=== PATIENT | female | born 1960 | race Caucasian/White ===

== ENCOUNTER → 2017-02-06 16:39 | Outpatient (CLI) | payer MEDICAID | END | disposition home or self-care (01) | LOC: D.MAMMO 10:00 | DX: Z12.31 Encounter for screening mammogram for malignant neoplasm of breast (principal) ==

== ENCOUNTER 2020-05-27 18:00 | Emergency (ER) | payer BC ==
[~2020-05-27] VITALS: Ht 162.6 cm; Wt 68.2 kg
[2020-05-27 18:03] VITALS: Ht 162.6 cm; Wt 68.2 kg
[2020-05-27] MEDS ORDERED: PROVENTIL/2.5 MG/3 M (18:04)
[2020-05-27 19:08] LABS: BASOPHILS 0.2 % (0-2); HEMATOCRIT 44.1 % (36.0-48.0); HEMOGLOBIN 14.4 g/dL (12-16); IMMATURE GRANULOCYTES 2.6 % (0-5); LYMPHOCYTES 28.4 % (15-50); MCHC 32.7 g/dL (31.0-37.0); MEAN PLATELET VOLUME 9.2 fL (7.4-10.4); MONOCYTES 4.5 % (2-11); NEUTROPHILS 55.3 % (40-80); PLATELET COUNT 156 10x3/uL (130-400); RDW 13.9 % (11.5-14.5); WBC 6.7 10x3/uL (4.8-10.8)
[2020-05-27 19:16] LABS: CALCIUM 8.7 mg/dL (8.5-10.1); CARBON DIOXIDE 32.2 mmol/L (21.0-32.0); CREATININE - SERUM 1.1 mg/dL (0.6-1.3); POTASSIUM - SERUM 3.2 mmol/L (3.5-5.1)
[2020-05-27 19:22] LABS: ALBUMIN 3.6 g/dL (3.4-5.0); BILIRUBIN - TOTAL 0.4 mg/dL (0.2-1.3); PROTEIN - SERUM 6.9 g/dL (6.4-8.2)
[2020-05-27] MEDS ORDERED: LEVAQUIN750 MG PO (20:59)
[2020-05-27 21:18] VITALS: BP 145/87
== END 2020-05-27 21:18 | disposition home or self-care (01) ==
LOC: D.ER 18:00
PROVIDERS: Family Medicine
DX: J18.1 Lobar pneumonia, unspecified organism (principal); R68.89 Other general symptoms and signs; Z72.0 Tobacco use

== ENCOUNTER 2020-06-20 16:08 | Inpatient (IN) | payer MEDICAID ==
[~2020-06-20] VITALS: Ht 162.6 cm; Wt 71.1 kg
--- NOTE | ~2020-06-20 | EC ---
PATIENT:JEZ LEMA DATE OF SERVICE: 06/20/20 SEX: F MEDICAL RECORD: [id number] DATE OF : 64 LOCATION:[facility] AGE OF PATIENT: 60 ADMISSION DATE: 06/20/20 REFERRING PHYSICIAN: INTERPRETING PHYSICIAN: PANCHO LIM MD ECHOCARDIOGRAM REPORT ECHO CHARGES 4 ECHO COMPLETE Date: 06/22/20 CLINICAL DIAGNOSIS: COPD, POSSIBLE LUNG MASS, BASELINE EF ECHOCARDIOGRAPHIC MEASUREMENTS (adult normal given) AC root (d.<3.7cm) 3.1 cm LV Septum d (<1.2 cm> 1.0 cm Valve Excursion 1.5 cm LV Septum (systole) 1.4 cm Left Atria (s.<4.0cm> 2.9 cm LVPW d(<1.2cm) 0.9 cm RV (d.<2.3cm) 2.2 cm LVPW (sytole) 1.4 cm LV diastole(<5.6CM) 4.5 cm MV E-F(>70mm/sec) cm LV systole 3.5 cm LVOT Diameter 1.9 cm MV exc.(>10mm) cm Est.ejection fraction (50-75%) % DOPPLER: LVIT cm/sec A 82 cm/sec E 58 cm/sec LA cm/sec RVSP 16.4 mmHg LVOT 75 cm/sec AOP1/2T m/s Asc. Ao 119 cm/sec RVOT 73 cm/sec RA cm/sec PA 79 cm/sec AV Gradient Peak 5.7 mmHg AV Mean 3.5 mmHg AV Area 1.9 cm MV Gradient Peak 4.8 mmHg MV Mean 2.9 mmHg MV Area cm COMMENTS: Waiter/Waitress Take Out: Caleb DURAND Commission Associate: Rowan Lim TAPE# PACS Pericardial Effusion N DATE OF SERVICE: PROCEDURE: Transthoracic echocardiogram. FINDINGS: 1. Left ventricle is not well visualized. Overall, appears to have normal to hyperdynamic function, ejection fraction 55% to 60%. There is no obvious wall motion abnormalities. 2. The right ventricle appears to be normal size, shape, structure, and function. ECHOCARDIOGRAM REPORT [id number] JEZ LEMA 3. The left atrium is normal. 4. The aortic valve appears to be normal. 5. Mitral valve is normal. 6. Tricuspid valve is normal. 7. The right atrium is normal. No significant effusion in the pericardium. TRANSINT:[id number] Voice Confirmation ID: [id number] DOCUMENT ID: [id number] PANCHO LIM MD CC: [id number] DICTATION DATE: 06/23/20 1042 BELT TENDER: 06/23/20 1224 ADM IN [facility] [address] [place] [address]
[~2020-06-20 16:08] MED LIST: LEVAQUIN750 MG PO; PROVENTIL/2.5 MG/3 M INH
[2020-06-20 16:20] VITALS: BP 121/72; BMI 25.8
--- NOTE | 2020-06-20 16:52 | NUR ---
CT ORDERED WITH CONTRAST. PATIENT ALLERGIC TO CONTRAST. WILL START CONTRAST ALLERGY PROTOCOL.
[2020-06-20 16:58] VITALS: BP 121/72
[2020-06-20 17:06] LABS: BASOPHILS 0.2 % (0-2); EOSINOPHILS 2.8 % (0-7); HEMATOCRIT 45.8 % (36.0-48.0); HEMOGLOBIN 14.8 g/dL (12-16); IMMATURE GRANULOCYTES 0.2 % (0-5); LYMPHOCYTES 30.9 % (15-50); MCH 31.7 pg (26.0-34.0); MCHC 32.3 g/dL (31.0-37.0); MCV 98.1 fL (80.0-100.0); MEAN PLATELET VOLUME 9.4 fL (7.4-10.4); MONOCYTES 4.8 % (2-11); NEUTROPHILS 61.1 % (40-80); PLATELET COUNT 141 10x3/uL (130-400); RBC 4.67 10x6/uL (4.00-5.40); RDW 13.4 % (11.5-14.5); WBC 5.4 10x3/uL (4.8-10.8)
[2020-06-20 17:29] LABS: CALC OSMOLALITY 280 mosm/kg (275-300); CARBON DIOXIDE 32.2 mmol/L (21.0-32.0); CHLORIDE - SERUM 106 mmol/L (98-107); CREATININE - SERUM 0.8 mg/dL (0.6-1.3); POTASSIUM - SERUM 3.5 mmol/L (3.5-5.1); SODIUM 141 mmol/L (136-145); UREA NITROGEN 8 mg/dL (7-18); eGFR NON AFRICAN AMERICAN 78 mL/min (90-120)
[2020-06-20 17:31] LABS: GLUCOSE 140 mg/dL (74-106)
[2020-06-20 17:43] LABS: ALBUMIN 3.3 g/dL (3.4-5.0); ALKALINE PHOSPHATASE 79 U/L (30-120); ALT (SGPT) 28 U/L (10-68); PROTEIN - SERUM 6.5 g/dL (6.4-8.2)
--- NOTE | 2020-06-20 19:15 | NUR ---
REPORT GIVEN BY ANNA RAMIREZ
--- NOTE | 2020-06-20 21:00 | NUR ---
PT ASSESSMENT COMPLETED. PT IS UP AD EMMA IN HER ROOM. SHE IS HERE FOR COPD WITH LOW SATS IN DR. JENNINGS'S OFFICE. SHE IS ON 2L O2 PRESENTLY. SHE IS NOT ON HOME O2. SHE HAS A 20 G RIGHT FOREARM SL. SHE IS AWAKE AND ORIENTED X 4. SHE TELLS ME ABOUT A CT SHE HAD 40 YEARS AGO AND THE REACTION SHE HAD TO THE DYE. I TRIED TO REASSURE HER WITH HOPEFULLY THINGS HAVE GOTTEN BETTER IN 40 YEARS. SHE LAUGHED AND SAID SHE WAS STILL VERY ANXIOUS AND THAT SHE WOULD LIKE ANXIETY MEDS. SKIN IS WARM AND DRY. HEART TONES WNL AND BOWEL SOUNDS HEARD. PT IS GOING TO HAVE A CT TOMORROW OF HER CHEST AND IS ON A PROTOCOL FOR PT ALLERGIC TO CONTRAST DYE. PT IS ON A REGULAR DIET. NO NEW C/O OR NEEDS AT THIS TIME.
--- NOTE | 2020-06-20 21:15 | NUR ---
PT IS COUGHING AND SHE STATES SHE CAN GET NOTHING UP. I BROUGHT HER AND INCENTIVE SPIROMETER AND INSTRUCTED HER HOW TO USE IT. SHE GETS THE METER TO ALMOST 1000. I INSTRUCTED HER TO USE THIS 10 TIMES AND HOUR WHEN SHE IS AWAKE. SHE STATES THAT SHE WILL DO THIS.
--- NOTE | 2020-06-20 22:18 | NUR ---
SPOKE WITH CHIQUIS EDEN, TO ASK FOR ANXIETY MED FOR THIS PT. SHE STATES SHE WILL ORDER SOMETHING FOR HER.
[2020-06-20 23:02] LABS: APTT 26.2 SECONDS (22.8-39.4); INR 0.95 (0.85-1.17); PROTIME 12.6 SECONDS (11.6-15.0)
[2020-06-20 23:03] LABS: D-DIMER-QUANTITATIVE 0.81 ug/mLFEU (0.20-0.54)
--- NOTE | 2020-06-20 23:30 | NUR ---
LEFT A CUP FOR PT TO COLLECT URINE FOR A UA.
--- NOTE | 2020-06-20 23:45 | NUR ---
URINE SAMPLE COLLECTED AND PUT IN TUBES: TAKEN TO THE LAB.
[2020-06-21] VITALS: BP 123/73
[2020-06-21 01:01] LABS: BILIRUBIN NEGATIVE (NEGATIVE); GLUCOSE 1000 mg/dL (NEGATIVE); KETONE NEGATIVE (NEGATIVE); NITRITE NEGATIVE (NEGATIVE); UROBILINOGEN NORMAL (NORMAL)
--- NOTE | 2020-06-21 02:36 | NUR ---
PT RESTING IN BED QUIETLY. O2 IN PLACE BUT PT IS A MOUTH BREATHER.
[2020-06-21 04:00] VITALS: BP 127/63
[2020-06-21 05:33] LABS: HEMATOCRIT 44.3 % (36.0-48.0); HEMOGLOBIN 14.5 g/dL (12-16); MCH 32.1 pg (26.0-34.0); MCHC 32.7 g/dL (31.0-37.0); MEAN PLATELET VOLUME 9.6 fL (7.4-10.4); PLATELET COUNT 143 10x3/uL (130-400); RBC 4.52 10x6/uL (4.00-5.40); RDW 13.1 % (11.5-14.5)
[2020-06-21 05:40] LABS: WBC 2.9 10x3/uL (4.8-10.8)
[2020-06-21 06:03] LABS: ALBUMIN 3.2 g/dL (3.4-5.0); ALKALINE PHOSPHATASE 77 U/L (30-120); ALT (SGPT) 25 U/L (10-68); CALCIUM 8.8 mg/dL (8.5-10.1); CHLORIDE - SERUM 104 mmol/L (98-107); CREATININE - SERUM 0.8 mg/dL (0.6-1.3); MAGNESIUM - SERUM 1.9 mg/dL (1.8-2.4); PROTEIN - SERUM 6.3 g/dL (6.4-8.2); SODIUM 140 mmol/L (136-145); UREA NITROGEN 7 mg/dL (7-18); eGFR NON AFRICAN AMERICAN 78 mL/min (90-120)
[2020-06-21 06:10] LABS: CALC OSMOLALITY 290 mosm/kg (275-300); GLUCOSE 347 mg/dL (74-106); POTASSIUM - SERUM 4.3 mmol/L (3.5-5.1)
--- NOTE | 2020-06-21 07:08 | NUR ---
PT HAD A GOOD NIGHT. SHE SLEPT ALMOST ALL THE SHIFT. SHE WAS AWAKE TO TAKE HER MEDS. NO C/O OR NEEDS.
--- NOTE | 2020-06-21 07:15 | NUR ---
REC'D IN SITTING ON SIDE OF BED AWAKE AND ALERT. RESP EVEN AND UNLABORED WITH NO DISTRESS NOTED. CAN EXPRESS NEEDS AND WANTS. NO C/O NOTED OR VOICED AT THIS TIME. ASSESSMENT COMPLETED. C/L IN REACH AT BEDSIDE.
[2020-06-21 08:00] VITALS: BP 119/77
[2020-06-21 09:00] LABS: EOSINOPHILS 1 % (0-7); LYMPHOCYTES 33 % (15-50); MONOCYTES 4 % (2-11); NEUTROPHILS 62 % (40-80); PLATELET ESTIMATE NORMAL
[2020-06-21 11:51] VITALS: BP 110/66
--- NOTE | 2020-06-21 14:49 | NUR ---
MEDICATED WITH KLONOPIN PER PT REQUEST.
[2020-06-21 16:11] VITALS: BP 104/67
--- NOTE | 2020-06-21 19:55 | NUR ---
I have reviewed this patient and I concur with the Shift Assessment completed by the Licensed Practical Nurse today this shift.
[2020-06-21 20:00] VITALS: BP 105/64
[2020-06-22] VITALS: BP 108/71
--- NOTE | 2020-06-22 00:03 | NUR ---
ALERT AND ORENTED X4 ABLE TO VOICE NEEDS AND WANTS TO STAFF. ON AT 2LETERS PRN. IV TO RIGHT FOREARM . ABLE TO VOICE NEEDS AND WANTS TO STAFF. WATER AND CALL LIGHT IN REACH. FAMILY AT BEDSIDE. NO NEEDS AT THIS TIME.
[2020-06-22 04:00] VITALS: BP 110/81
[2020-06-22 07:12] LABS: BASOPHILS 0 % (0-2); EOSINOPHILS 0.1 % (0-7); HEMATOCRIT 43.8 % (36.0-48.0); HEMOGLOBIN 14.2 g/dL (12-16); IMMATURE GRANULOCYTES 0.3 % (0-5); LYMPHOCYTES 9.1 % (15-50); MCH 32.1 pg (26.0-34.0); MCHC 32.4 g/dL (31.0-37.0); MCV 99.1 fL (80.0-100.0); MEAN PLATELET VOLUME 9.4 fL (7.4-10.4); MONOCYTES 1.9 % (2-11); NEUTROPHILS 88.6 % (40-80); PLATELET COUNT 141 10x3/uL (130-400); RBC 4.42 10x6/uL (4.00-5.40); RDW 13.3 % (11.5-14.5)
[2020-06-22 07:28] LABS: WBC 7.4 10x3/uL (4.8-10.8)
[2020-06-22 07:29] LABS: APTT 23.2 SECONDS (22.8-39.4); INR 0.89 (0.85-1.17); PROTIME 12.1 SECONDS (11.6-15.0)
[2020-06-22 07:36] LABS: ALBUMIN 3.2 g/dL (3.4-5.0); BILIRUBIN - TOTAL 0.22 mg/dL (0.2-1.3); CALCIUM 8.7 mg/dL (8.5-10.1); CARBON DIOXIDE 28.3 mmol/L (21.0-32.0); CREATININE - SERUM 0.9 mg/dL (0.6-1.3); MAGNESIUM - SERUM 1.9 mg/dL (1.8-2.4); POTASSIUM - SERUM 4.3 mmol/L (3.5-5.1); PROTEIN - SERUM 6.3 g/dL (6.4-8.2)
[2020-06-22 08:00] VITALS: BP 96/52
[2020-06-22 12:11] VITALS: BP 120/59
[2020-06-22 13:31] VITALS: BMI 25.7
[2020-06-22 16:08] VITALS: BP 109/63
[2020-06-22 20:00] VITALS: BP 116/74
--- NOTE | 2020-06-22 23:27 | NUR ---
ALERT AND ORENTED X4 HUSBEN AT BEDSIDE. WATER AND CALL LIGHT IN REACG. EDUCATED THAT WILL BE NPO AT MN. 20 ANNE IV IN RIGHT FOREARM, INTACT. UP AT EMMA. O2 AT 4LETERS PER MIN. VIA N/C..
[2020-06-23] VITALS (12 sets, daily range): BP systolic 97–126; BP diastolic 59–80
[2020-06-23 05:03] LABS: BASOPHILS 0 % (0-2); EOSINOPHILS 0 % (0-7); HEMATOCRIT 44.7 % (36.0-48.0); HEMOGLOBIN 14.2 g/dL (12-16); IMMATURE GRANULOCYTES 0.2 % (0-5); LYMPHOCYTES 9.3 % (15-50); MCH 31.5 pg (26.0-34.0); MCHC 31.8 g/dL (31.0-37.0); MCV 99.1 fL (80.0-100.0); MEAN PLATELET VOLUME 9.8 fL (7.4-10.4); NEUTROPHILS 88.5 % (40-80); PLATELET COUNT 145 10x3/uL (130-400); RBC 4.51 10x6/uL (4.00-5.40); RDW 13.3 % (11.5-14.5); WBC 8.4 10x3/uL (4.8-10.8)
[2020-06-23 05:34] LABS: ALBUMIN 3.3 g/dL (3.4-5.0); ANION GAP 9.2 mmol/L (8-16); BILIRUBIN - TOTAL 0.29 mg/dL (0.2-1.3); CALCIUM 8.9 mg/dL (8.5-10.1); CARBON DIOXIDE 31.1 mmol/L (21.0-32.0); CREATININE - SERUM 0.9 mg/dL (0.6-1.3); MAGNESIUM - SERUM 1.9 mg/dL (1.8-2.4); POTASSIUM - SERUM 4.3 mmol/L (3.5-5.1); PROTEIN - SERUM 6.6 g/dL (6.4-8.2)
--- NOTE | 2020-06-23 08:45 | NUR ---
SHE IS ALERT, TALKING. WEARING 4 LITERS OF OXYGEN. SHE IS HAVING A BRONCH TODAY. HER DAUGHTER IS AT THE BEDSIDE.
--- NOTE | 2020-06-23 11:26 | NUR ---
PRE OP MEDS GIVEN, GOING FOR HER BROCH. HER DAUGHTER IS AT THE BEDSIDE.
--- NOTE | 2020-06-23 19:53 | NUR ---
AWAKE,ALERT, NO COMPLAINTS VOICED AT PRESENT TIME. SL TO RFA WITHOUT REDNESS OR EDEMA NOTED. NO DISTRESS NOTED. O2 @4L PER NC ON. CL IN REACH
--- NOTE | 2020-06-24 03:54 | NUR ---
I have reviewed this patient and I concur with the Shift Assessment completed by the Licensed Practical Nurse today this shift.
[2020-06-24 06:16] LABS: BASOPHILS 0 % (0-2); EOSINOPHILS 0 % (0-7); HEMATOCRIT 43.8 % (36.0-48.0); IMMATURE GRANULOCYTES 0.1 % (0-5); MCH 31.7 pg (26.0-34.0); MCV 99.3 fL (80.0-100.0); MEAN PLATELET VOLUME 9.3 fL (7.4-10.4); MONOCYTES 4.3 % (2-11); NEUTROPHILS 80.6 % (40-80); PLATELET COUNT 137 10x3/uL (130-400); RBC 4.41 10x6/uL (4.00-5.40); RDW 13.1 % (11.5-14.5); WBC 6.8 10x3/uL (4.8-10.8)
[2020-06-24 06:46] LABS: ALBUMIN 3.2 g/dL (3.4-5.0); ALKALINE PHOSPHATASE 76 U/L (30-120); ALT (SGPT) 22 U/L (10-68); BILIRUBIN - TOTAL 0.36 mg/dL (0.2-1.3); CALC OSMOLALITY 281 mosm/kg (275-300); CALCIUM 8.8 mg/dL (8.5-10.1); CARBON DIOXIDE 32.1 mmol/L (21.0-32.0); CHLORIDE - SERUM 102 mmol/L (98-107); CREATININE - SERUM 0.8 mg/dL (0.6-1.3); GLUCOSE 262 mg/dL (74-106); MAGNESIUM - SERUM 2.1 mg/dL (1.8-2.4); POTASSIUM - SERUM 4.5 mmol/L (3.5-5.1); PROTEIN - SERUM 6.4 g/dL (6.4-8.2); SODIUM 136 mmol/L (136-145); UREA NITROGEN 14 mg/dL (7-18); eGFR NON AFRICAN AMERICAN 78 mL/min (90-120)
--- NOTE | 2020-06-24 08:47 | NUR ---
MEDICATED FOR HEADACHE, CONT TO MONITOR PAIN, IV INFUSING, NO DISTRESS NOTED
[2020-06-24 10:44] VITALS: BP 107/65
[2020-06-24 14:09] LABS: ACID FAST SMEAR Negative (()); AFB SPECIMEN PROCESSING Concentration (())
[2020-06-24 14:48] LABS: CKMB 0.2 U/L (0.0-3.6); CREATINE KINASE 31 UL (21-215)
[2020-06-24 14:50] LABS: TROPONIN-I < 0.017 ng/mL (0.000-0.060)
[2020-06-24 17:43] VITALS: BP 100/67
[2020-06-24 19:08] LABS: CKMB 0.3 U/L (0.0-3.6); CREATINE KINASE 28 UL (21-215)
[2020-06-24 19:20] LABS: TROPONIN-I < 0.017 ng/mL (0.000-0.060)
[2020-06-24 20:00] VITALS: BP 123/72
--- NOTE | 2020-06-24 22:49 | NUR ---
EYES CLOSED RESP EVEN AND UNALBORED. NO DISTRESS NOTED. O2 @ 3L PER NC ON. CL IN REACH
[2020-06-25 01:13] LABS: CKMB 0.4 U/L (0.0-3.6); CREATINE KINASE 28 UL (21-215); TROPONIN-I < 0.017 ng/mL (0.000-0.060)
[2020-06-25 03:08] LABS: BASOPHILS 0 % (0-2); EOSINOPHILS 0 % (0-7); HEMOGLOBIN 14.1 g/dL (12-16); IMMATURE GRANULOCYTES 0.1 % (0-5); LYMPHOCYTES 19.9 % (15-50); MCH 32.4 pg (26.0-34.0); MCHC 32.8 g/dL (31.0-37.0); MCV 98.9 fL (80.0-100.0); MEAN PLATELET VOLUME 9.7 fL (7.4-10.4); MONOCYTES 5.6 % (2-11); NEUTROPHILS 74.4 % (40-80); PLATELET COUNT 144 10x3/uL (130-400); RBC 4.35 10x6/uL (4.00-5.40); RDW 12.8 % (11.5-14.5); WBC 7.2 10x3/uL (4.8-10.8)
[2020-06-25 03:23] LABS: ALBUMIN 3.2 g/dL (3.4-5.0); ALKALINE PHOSPHATASE 100 U/L (30-120); ALT (SGPT) 22 U/L (10-68); BILIRUBIN - TOTAL 0.31 mg/dL (0.2-1.3); CALC OSMOLALITY 293 mosm/kg (275-300); CALCIUM 8.9 mg/dL (8.5-10.1); CARBON DIOXIDE 30.8 mmol/L (21.0-32.0); CHLORIDE - SERUM 102 mmol/L (98-107); CREATININE - SERUM 0.8 mg/dL (0.6-1.3); MAGNESIUM - SERUM 1.9 mg/dL (1.8-2.4); POTASSIUM - SERUM 4.2 mmol/L (3.5-5.1); PROTEIN - SERUM 6.4 g/dL (6.4-8.2); SODIUM 138 mmol/L (136-145); UREA NITROGEN 16 mg/dL (7-18); eGFR NON AFRICAN AMERICAN 78 mL/min (90-120)
[2020-06-25 03:27] LABS: GLUCOSE 412 mg/dL (74-106)
[2020-06-25 04:00] VITALS: BP 123/78
--- NOTE | 2020-06-25 07:48 | NUR ---
I have reviewed this patient and I concur with the Shift Assessment completed by the Licensed Practical Nurse today this shift.
--- NOTE | 2020-06-25 07:55 | NUR ---
RESTING IN BED, NO DISTRESS NOTED, TAKING PAIN MED THIS AM FOR C/O HEAD, O2 PER NC AT 3L, CONT TO MONITOR
[2020-06-25 08:00] VITALS: BP 102/69
[2020-06-25 13:30] VITALS: BP 113/71; BP 129/64
[2020-06-25 18:26] VITALS: BP 102/54
[2020-06-25 20:00] VITALS: BP 107/69
--- NOTE | 2020-06-25 20:45 | NUR ---
SITTING UP IN BED WATCHING TV. NO COMPALITNS AT PRESENT. IV TO RFA INTACT WIHTOU REDNESS OR EDEMA NOTED. CL IN REACH
[2020-06-26] VITALS: BP 116/63
[2020-06-26 04:00] VITALS: BP 126/89
--- NOTE | 2020-06-26 04:16 | NUR ---
I have reviewed this patient and I concur with the Shift Assessment completed by the Licensed Practical Nurse today this shift.
[2020-06-26 05:02] LABS: BASOPHILS 0.1 % (0-2); EOSINOPHILS 0.4 % (0-7); HEMATOCRIT 43.5 % (36.0-48.0); HEMOGLOBIN 14.1 g/dL (12-16); IMMATURE GRANULOCYTES 0.3 % (0-5); LYMPHOCYTES 30.4 % (15-50); MCH 31.6 pg (26.0-34.0); MCHC 32.4 g/dL (31.0-37.0); MCV 97.5 fL (80.0-100.0); MEAN PLATELET VOLUME 9.6 fL (7.4-10.4); MONOCYTES 6.7 % (2-11); NEUTROPHILS 62.1 % (40-80); PLATELET COUNT 144 10x3/uL (130-400); RBC 4.46 10x6/uL (4.00-5.40); RDW 12.8 % (11.5-14.5)
[2020-06-26 05:27] LABS: ALKALINE PHOSPHATASE 81 U/L (30-120); ALT (SGPT) 23 U/L (10-68); BILIRUBIN - TOTAL 0.24 mg/dL (0.2-1.3); CALC OSMOLALITY 280 mosm/kg (275-300); CARBON DIOXIDE 32.5 mmol/L (21.0-32.0); CHLORIDE - SERUM 99 mmol/L (98-107); CREATININE - SERUM 0.7 mg/dL (0.6-1.3); POTASSIUM - SERUM 3.6 mmol/L (3.5-5.1); PROTEIN - SERUM 6.2 g/dL (6.4-8.2); SODIUM 136 mmol/L (136-145); UREA NITROGEN 14 mg/dL (7-18); eGFR NON AFRICAN AMERICAN > 90 mL/min (90-120)
[2020-06-26 05:28] LABS: GLUCOSE 239 mg/dL (74-106)
--- NOTE | 2020-06-26 08:04 | NUR ---
ASSESSMENT PER FLOW SHEET. MEDS ORDERED FOR HEADACHE PER JAN.MONITOR FOR NEEDS. CALL LIGHT IN REACH.
[2020-06-26 08:41] VITALS: BP 104/72
[2020-06-26 11:45] VITALS: BP 113/61
--- NOTE | 2020-06-26 13:05 | NUR ---
Nutrition follow-up: Diet: Regular PO intake 100% of meals Labs reviweed; Glucose remains elevated +BM Wt: 150# Recommend changing diet order to consistent CHO 2/2 [address] glucose[address] RDN following.
[2020-06-26 13:10] LABS: FUNGUS STAIN Final report (())
--- NOTE | 2020-06-26 16:20 | NUR ---
SLEEPING AT PRESENT,WITHOUT DISTRESS.
[2020-06-26 16:40] VITALS: BP 105/70
[2020-06-26 20:00] VITALS: BP 110/54
--- NOTE | 2020-06-26 20:00 | NUR ---
A&O X 4. AMBULATES AD EMMA. DENIES PAIN, REPORTS ANXIETY. UPSET ABOUT TAKING STERIODS FOR LONG PERIODS OF TIME AND ALSO ANXIOUS ABOUT UPCOMING PROCEDURE. NO NEEDS VOICED AT THIS TIME. CTM.
[2020-06-27] VITALS: BP 92/51
[2020-06-27 03:07] LABS: IMMUNOGLOBULIN E 87 IU/mL (6-495)
[2020-06-27 04:00] VITALS: BP 107/66
[2020-06-27 05:20] LABS: BASOPHILS 0.1 % (0-2); EOSINOPHILS 0.7 % (0-7); HEMATOCRIT 43.8 % (36.0-48.0); HEMOGLOBIN 14.3 g/dL (12-16); IMMATURE GRANULOCYTES 0.4 % (0-5); LYMPHOCYTES 31.4 % (15-50); MCH 32.1 pg (26.0-34.0); MCHC 32.6 g/dL (31.0-37.0); MCV 98.2 fL (80.0-100.0); MEAN PLATELET VOLUME 9.5 fL (7.4-10.4); MONOCYTES 6.7 % (2-11); NEUTROPHILS 60.7 % (40-80); PLATELET COUNT 140 10x3/uL (130-400); RBC 4.46 10x6/uL (4.00-5.40); RDW 12.9 % (11.5-14.5); WBC 9.2 10x3/uL (4.8-10.8)
[2020-06-27 05:22] LABS: ALBUMIN 2.9 g/dL (3.4-5.0); ANION GAP 9.6 mmol/L (8-16); BILIRUBIN - TOTAL 0.33 mg/dL (0.2-1.3); CARBON DIOXIDE 32.1 mmol/L (21.0-32.0); POTASSIUM - SERUM 3.7 mmol/L (3.5-5.1); PROTEIN - SERUM 6.1 g/dL (6.4-8.2)
[2020-06-27 05:30] LABS: CREATININE - SERUM 0.9 mg/dL (0.6-1.3)
--- NOTE | 2020-06-27 06:31 | NUR ---
I have reviewed this patient and I concur with the Shift Assessment completed by the Licensed Practical Nurse today this shift.
[2020-06-27 08:42] VITALS: BP 100/64
--- NOTE | 2020-06-27 10:37 | MORECARE ---
CASE MANAGEMENT DISCHARGE SUMMARY PATIENT: JEZ LEMA UNIT: [id number] ADM DATE: 06/20/20 AGE: 60 : 64 SEX: F ROOM/BED: D.2237 AUTHOR: JONAH GUAN PHYSICIAN: REFERRING PHYSICIAN: NAE NUNEZ MD DATE OF SERVICE: 06/27/20 Discharge Plan Patient Name[facility]EMA [facility] [facility] 1960 Planned Disposition: Anticipated Discharge Date: Discharge Date: Expected LOS: Initial Reviewer: [email or web address] Initial Review Date: 06/23/2020 Generated: 06/27/20 11:36 am DCPIA - Discharge Planning Initial Assessment Updated by [email or web address]: Kathrine Morejon on 06/27/20 10:36 am * Is the patient Alert and Oriented? Yes * PCP SALAZAR * Pharmacy [facility] * Preadmission Environment Home with Family * ADLs Independent * Other Equipment NEBS * Community resources currently utilized None * Additional services required to return to the preadmission environment? No * Can the patient safely return to the preadmission environment? Yes * Has this patient been hospitalized within the prior 30 days at any hospital? No Patient Name: JEZ LEMA Page [phone] at 1037 All edits/amendments must be made on the electronic document DICTATION DATE: 06/27/20 1036 CLASSIFICATION CASE MANAGER: AMPARO 06/27/20 1036 RPT#: [id number] DC DATE: STATUS: ADM IN [facility] [address] [place] [address] END OF REPORT
--- NOTE | 2020-06-27 10:45 | MORECARE ---
CASE MANAGEMENT DISCHARGE SUMMARY PATIENT: JEZ LEMA UNIT: [id number] ADM DATE: 06/20/20 AGE: 60 : 64 SEX: F ROOM/BED: D.2237 AUTHOR: FREIDADOC PHYSICIAN: REFERRING PHYSICIAN: NAE NUNEZ MD DATE OF SERVICE: 06/27/20 Discharge Plan Patient Name: JEZ LEMA Facility: [facility]:[place] : 1960 Planned Disposition: Anticipated Discharge Date: Discharge Date: Expected LOS: Initial Reviewer: [email or web address] Initial Review Date: 06/23/2020 Generated: 06/27/20 11:44 am Comments DCP- Discharge Planning Updated by [email or web address]: Kathrine Morejon on 06/27/20 9:[address] Patient Name: JEZ LEMA Admission Status: Elective Accout number: [id number] Admission Date: 06-20-2020 : 1960 Admission Diagnosis:SHORTNESS OF BREATH Attending: ARNAUD NUNEZ Current LOS: 7 Anticipated DC Date: Planned Disposition: Primary Insurance[place] PR[employer] OPTIONS EFRAIN Discharge Planning Comments: CM met with patient at bedside after explaining CM role and obtaining verbal consent. CM discussed availability / needs of home health, REHAB and medical equipment. WALK TEST DONE AND SHE MEETS FOR NEEDING OXYGEN. ESTIVEN SIGNED FOR [facility]. THEY HAVE DELIVERED A TANK TO HER ROOM. AT TIME OF DC SHE PLANS TO RETURN TO HOME. DENIES NEED FOR REHAB OR HH. STATES IS HAVING SOME TYPE OF PROCEDURE TODAY. SHE ANTICIPATES DC IN A COUPLE OF DAYS. CM TO FOLLOW AND ASSIST NEEDED. Billboard Erector Helper: Kathrine Morejon DCPIA - Discharge Planning Initial Assessment Updated by [email or web address]: Kathrine Morejon on 06/27/20 10:36 am * Is the patient Alert and Oriented? Yes * PCP SALAZAR * Pharmacy [facility] * Preadmission Environment Home with Family * ADLs Independent * Other Equipment NEBS * Community resources currently utilized None * Additional services required to return to the preadmission environment? No * Can the patient safely return to the preadmission environment? Yes * Has this patient been hospitalized within the prior 30 days at any hospital? No Last DP export: 06/27/20 9:37 a Patient Name: JEZ LEMA Page [phone] at 1045 All edits/amendments must be made on the electronic document DICTATION DATE: 06/27/20 1044 ASSOCIATE PASTOR: AMPARO 06/27/20 1044 RPT#: [id number] DC DATE: STATUS: ADM IN [facility] [address] [place] [address] END OF REPORT
[2020-06-27 12:45] VITALS: BP 105/65
[2020-06-27 17:00] VITALS: BP 126/75
[2020-06-27 20:00] VITALS: BP 107/66
--- NOTE | 2020-06-27 20:45 | NUR ---
A&O X 4. CONSENTS SIGNED. STATES SHES EATING MUCH POSSIBLE TIL MIDNIGHT. VERBALIZED UNDERSTANDING OF NPO STATUS. CTM.
[2020-06-28] VITALS: BP 88/49
--- NOTE | 2020-06-28 01:40 | NUR ---
I have reviewed this patient and I concur with the Shift Assessment completed by the Licensed Practical Nurse today this shift.
[2020-06-28 04:00] VITALS: BP 116/68
[2020-06-28 05:45] LABS: BASOPHILS 0 % (0-2); EOSINOPHILS 0.6 % (0-7); HEMATOCRIT 42.6 % (36.0-48.0); HEMOGLOBIN 14.1 g/dL (12-16); IMMATURE GRANULOCYTES 0.3 % (0-5); MCH 32.2 pg (26.0-34.0); MCHC 33.1 g/dL (31.0-37.0); MCV 97.3 fL (80.0-100.0); MEAN PLATELET VOLUME 9.4 fL (7.4-10.4); NEUTROPHILS 60.1 % (40-80); PLATELET COUNT 145 10x3/uL (130-400); RBC 4.38 10x6/uL (4.00-5.40); RDW 12.7 % (11.5-14.5); WBC 8.9 10x3/uL (4.8-10.8)
[2020-06-28 06:23] LABS: ALKALINE PHOSPHATASE 70 U/L (30-120); ALT (SGPT) 20 U/L (10-68); BILIRUBIN - TOTAL 0.46 mg/dL (0.2-1.3); CALC OSMOLALITY 285 mosm/kg (275-300); CALCIUM 9.1 mg/dL (8.5-10.1); CARBON DIOXIDE 32.8 mmol/L (21.0-32.0); CHLORIDE - SERUM 103 mmol/L (98-107); CREATININE - SERUM 0.7 mg/dL (0.6-1.3); GLUCOSE 199 mg/dL (74-106); POTASSIUM - SERUM 4.1 mmol/L (3.5-5.1); PROTEIN - SERUM 6.1 g/dL (6.4-8.2); SODIUM 139 mmol/L (136-145); UREA NITROGEN 17 mg/dL (7-18); eGFR NON AFRICAN AMERICAN > 90 mL/min (90-120)
[2020-06-28 09:17] VITALS: BP 101/36
--- NOTE | 2020-06-28 12:17 | NUR ---
PATIENT TO GI LAB FOR BRONCH VIA BED. PREOP MEDS COMPLETE.
[2020-06-28 14:41] VITALS: BP 100/70
[2020-06-28 14:54] VITALS: BP 93/53
--- NOTE | 2020-06-28 14:59 | NUR ---
REPORT RECIEVED FROM LEYDA MALIK. PATIENT BACK TO UNIT VIA BED FROM GI LAB. POST OP VITALS RECORDED PER FLOWSHEET. PATIENT WITHOUT DISTRESS.
--- NOTE | 2020-06-28 17:05 | NUR ---
PATIENT TO MRI VIA WHEELCHAIR.
--- NOTE | 2020-06-28 17:49 | NUR ---
PATIENT BACK TO UNIT VIA WHEELCHAIR FROM MRI. PATIENT WITHOUT DISTRESS.
[2020-06-28 20:00] VITALS: BP 91/52
--- NOTE | 2020-06-28 21:00 | NUR ---
SITTING UP IN ROON, 2L O2 IN USE. DENIES NEEDS AT THIS TIME, BUT REQUESTS HEADACHE MEDICATION WHENEVER IT IS NEXT AVAILABLE
[2020-06-29] VITALS: BP 95/54
[2020-06-29 04:00] VITALS: BP 117/74
[2020-06-29 04:37] LABS: BASOPHILS 0.1 % (0-2); EOSINOPHILS 0.8 % (0-7); HEMATOCRIT 42.8 % (36.0-48.0); HEMOGLOBIN 13.8 g/dL (12-16); IMMATURE GRANULOCYTES 0.6 % (0-5); LYMPHOCYTES 33.5 % (15-50); MCH 31.9 pg (26.0-34.0); MCHC 32.2 g/dL (31.0-37.0); MCV 99.1 fL (80.0-100.0); MEAN PLATELET VOLUME 9.5 fL (7.4-10.4); MONOCYTES 6.3 % (2-11); NEUTROPHILS 58.7 % (40-80); PLATELET COUNT 134 10x3/uL (130-400); RBC 4.32 10x6/uL (4.00-5.40); RDW 12.8 % (11.5-14.5); WBC 7.1 10x3/uL (4.8-10.8)
[2020-06-29 05:05] LABS: ALKALINE PHOSPHATASE 67 U/L (30-120); ALT (SGPT) 25 U/L (10-68); BILIRUBIN - TOTAL 0.37 mg/dL (0.2-1.3); CALC OSMOLALITY 283 mosm/kg (275-300); CALCIUM 9.1 mg/dL (8.5-10.1); CARBON DIOXIDE 30.9 mmol/L (21.0-32.0); CHLORIDE - SERUM 102 mmol/L (98-107); CREATININE - SERUM 0.8 mg/dL (0.6-1.3); GLUCOSE 199 mg/dL (74-106); POTASSIUM - SERUM 3.9 mmol/L (3.5-5.1); PROTEIN - SERUM 6.2 g/dL (6.4-8.2); SODIUM 138 mmol/L (136-145); UREA NITROGEN 17 mg/dL (7-18); eGFR NON AFRICAN AMERICAN 78 mL/min (90-120)
--- NOTE | 2020-06-29 05:11 | NUR ---
I have reviewed this patient and I concur with the Shift Assessment completed by the Licensed Practical Nurse today this shift.
--- NOTE | 2020-06-29 07:41 | NUR ---
ALERT AND ORIENTED. LUNGS DIMINISHED BILATERALLY. HEART SOUNDS S1 AND S2 HEARD IN ALL JEONG. BOWEL SOUNDS ACTIVE X 4. IV TO RFA PATENT WITHOUT REDNESS. DENIES NEEDS. BED LOW. CALL [place] AND PERSONAL ITEMS IN REACH. WILL CONTINUE TO MONITOR.
[2020-06-29 09:03] VITALS: BP 109/64
--- NOTE | 2020-06-29 12:38 | NUR ---
RESTING IN BED. DENIES NEEDS. WILL CONTINUE TO MONITOR.
[2020-06-29 13:00] VITALS: BP 122/66
[2020-06-29 17:36] VITALS: BP 118/71
[2020-06-29 20:00] VITALS: BP 123/71
--- NOTE | 2020-06-29 20:00 | NUR ---
PATIENT RESTING IN BED WATCHING TV. NO S/S OF ACUTE DISTRESS. NO C/O AT THIS TIME. PATIENT IS ON 2L OF O2. PATIENT HAS A RIGHT FOREARM, SALINE LOC. IV IS PATENT WITHOUT REDNESS, SWELLING, OR TENDERNESS. PATIENT IS UP ADLIB TO THE BATHROOM. CALL LIGHT WITHIN REACH. WILL CONTINUE TO MONITOR.
--- NOTE | 2020-06-30 01:09 | NUR ---
I have reviewed this patient and I concur with the Shift Assessment completed by the Licensed Practical Nurse today this shift.
[2020-06-30 04:00] VITALS: BP 97/57
[2020-06-30 05:31] LABS: BASOPHILS 0 % (0-2); EOSINOPHILS 0.7 % (0-7); HEMATOCRIT 40.5 % (36.0-48.0); IMMATURE GRANULOCYTES 0.3 % (0-5); LYMPHOCYTES 38.3 % (15-50); MCH 31.6 pg (26.0-34.0); MCHC 32.1 g/dL (31.0-37.0); MCV 98.3 fL (80.0-100.0); MEAN PLATELET VOLUME 9.9 fL (7.4-10.4); MONOCYTES 6.7 % (2-11); PLATELET COUNT 141 10x3/uL (130-400); RBC 4.12 10x6/uL (4.00-5.40); RDW 12.8 % (11.5-14.5); WBC 7.1 10x3/uL (4.8-10.8)
[2020-06-30 05:47] LABS: ALBUMIN 2.9 g/dL (3.4-5.0); ALKALINE PHOSPHATASE 65 U/L (30-120); ALT (SGPT) 27 U/L (10-68); BILIRUBIN - TOTAL 0.33 mg/dL (0.2-1.3); CALC OSMOLALITY 282 mosm/kg (275-300); CALCIUM 8.7 mg/dL (8.5-10.1); CARBON DIOXIDE 31.2 mmol/L (21.0-32.0); CHLORIDE - SERUM 104 mmol/L (98-107); CREATININE - SERUM 0.7 mg/dL (0.6-1.3); GLUCOSE 206 mg/dL (74-106); POTASSIUM - SERUM 3.5 mmol/L (3.5-5.1); PROTEIN - SERUM 5.8 g/dL (6.4-8.2); SODIUM 139 mmol/L (136-145); eGFR NON AFRICAN AMERICAN > 90 mL/min (90-120)
[2020-06-30 06:16] LABS: UREA NITROGEN 11 mg/dL (7-18)
[2020-06-30 11:05] VITALS: BP 95/57
[2020-06-30] MEDS ORDERED: NICODERM CQ1 EAC3 TRANSDERM (11:49)
[2020-06-30] MEDS ORDERED: TESSALON PERLE100 MG PO (11:49)
[2020-06-30] MEDS ORDERED: PULMICORT0.5 MG/21 UPD (11:50)
[2020-06-30] MEDS ORDERED: SINGULAIR10 MG PO (11:50)
[2020-06-30] MEDS ORDERED: MUCINEX600 MG PO (11:50)
[2020-06-30] MEDS ORDERED: FLUTICASONE PRO16 GM NASAL (11:50)
[2020-06-30] MEDS ORDERED: PREDNISONE10 MG PO (11:53)
--- NOTE | 2020-06-30 12:28 | NUR ---
DISCHARGE EDUCATION PROVIDED BOTH WRITTEN AND VERBAL. VERBALIZED UNDERSTANDING. DENIES FURTHER QUESTIONS. STATES WILL MAKE OWN FOLLOW UP APPTS AND WILL CALL PCP FOR FIORICET RX BECAUSE DOES NOT WANT TO WAIT FOR HATCHERY ATTENDANT TO MAKE APPOINTMENTS OR WAIT ON MD IN HOSPITAL TO GET TO FLOOR. DENIES NEEDS. IV REMOVED FROM RIGHT HAND WITH TIP INTACT. WAITING RIDE.
--- NOTE | 2020-06-30 12:46 | NUR ---
PATIENT DC HOME WITH DAUGHTER ALL BELONGINGS.
--- NOTE | 2020-06-30 16:58 | MORECARE ---
CASE MANAGEMENT DISCHARGE SUMMARY PATIENT: JEZ LEMA UNIT: [id number] ADM DATE: 06/20/20 AGE: 60 : 64 SEX: F ROOM/BED: D.2237 AUTHOR: FREIDA,DOC PHYSICIAN: REFERRING PHYSICIAN: NAE NUNEZ MD DATE OF SERVICE: 06/30/20 Discharge Plan Patient Name: JEZ LEMA Facility: [facility]:[place] : 1960 Planned Disposition: Anticipated Discharge Date: Discharge Date: 06/30/2020 Expected LOS: Initial Reviewer: [email or web address] Initial Review Date: 06/23/2020 Generated: 06/30/20 5:58 pm DCP- Discharge Planning Updated by [email or web address]: Kathrine Morejon on 06/27/20 9:[address] Patient Name: JEZ LEMA Admission Status: Elective Accout number: [id number] Admission Date: 06-20-2020 : 1960 Admission Diagnosis:SHORTNESS OF BREATH Attending: ARNAUD NUNEZ Current LOS: 7 Anticipated DC Date: Planned Disposition: Primary Insurance: [place] PRIVATE OPTIONS EFRAIN Discharge Planning Comments: CM met with patient at bedside after explaining CM role and obtaining verbal consent. CM discussed availability / needs of home health, REHAB and medical equipment. WALK TEST DONE AND SHE MEETS FOR NEEDING OXYGEN. ESTIVEN SIGNED FOR [facility]. THEY HAVE DELIVERED A TANK TO HER ROOM. AT TIME OF DC SHE PLANS TO RETURN TO HOME. DENIES NEED FOR REHAB OR HH. STATES IS HAVING SOME TYPE OF PROCEDURE TODAY. SHE ANTICIPATES DC IN A COUPLE OF DAYS. CM TO FOLLOW AND ASSIST NEEDED. Hat Brim Curler: Kathrine Morejon DCPIA - Discharge Planning Initial Assessment Updated by [email or web address]: Kathrine Morejon on 06/27/20 10:36 am * Is the patient Alert and Oriented? Yes * PCP SALAZAR * Pharmacy [facility] * Preadmission Environment Home with Family * ADLs Independent * Other Equipment NEBS * Community resources currently utilized None * Additional services required to return to the preadmission environment? No * Can the patient safely return to the preadmission environment? Yes * Has this patient been hospitalized within the prior 30 days at any hospital? No Last DP export: 06/27/20 9:45 a Patient Name: JEZ LEMA Page 88995 at 1658 All edits/amendments must be made on the electronic document DICTATION DATE: 06/30/201657 CANT HOOKER: AMPARO 06/30/201657 RPT#: [id number] DC DATE:06/30/20 STATUS: DIS IN [facility] [address] [place] [address] END OF REPORT
[2020-07-01 12:53] VITALS: Ht 162.6 cm; Wt 71.1 kg
== END 2020-06-30 12:54 | disposition home or self-care (01) | DRG 843 ==
LOC: D.MS 16:08
PROVIDERS: Internal Medicine Pulmonary Disease; ADMIT Emergency Medicine; ATTEND Emergency Medicine
PROC: 0B9B8ZZ Drainage of Left Lower Lobe Bronchus, Via Natural or Artificial Opening Endoscopic (ICD-10-PCS; 2020-06-23)
PROC: 0BBB8ZX Excision of Left Lower Lobe Bronchus, Via Natural or Artificial Opening Endoscopic, Diagnostic (ICD-10-PCS; principal; 2020-06-23 11:30)
PROC: 0BDB8ZX Extraction of Left Lower Lobe Bronchus, Via Natural or Artificial Opening Endoscopic, Diagnostic (ICD-10-PCS; 2020-06-28)
PROC: 0B9F8ZX Drainage of Right Lower Lung Lobe, Via Natural or Artificial Opening Endoscopic, Diagnostic (ICD-10-PCS; 2020-06-28)
DX: C7A.8 Other malignant neuroendocrine tumors (principal); J18.9 Pneumonia, unspecified organism; J96.01 Acute respiratory failure with hypoxia; F17.203 Nicotine dependence unspecified, with withdrawal; J98.11 Atelectasis; R04.2 Hemoptysis; R78.81 Bacteremia; F41.9 Anxiety disorder, unspecified; J30.9 Allergic rhinitis, unspecified; J43.9 Emphysema, unspecified

== ENCOUNTER 2020-07-11 05:24 | Day surgery (SDC) | payer MEDICAID ==
[~2020-07-11] VITALS: Ht 162.6 cm; Wt 68.9 kg
--- NOTE | ~2020-07-11 | OP ---
PATIENT NAME: JEZ LEMA MEDICAL RECORD: [id number] :[birth year] LOCATION:D.OPS ADMISSION DATE: SURGEON: JESUS HORVATH MD DATE OF OPERATION: 07/11/2020 PREOPERATIVE DIAGNOSIS: Small cell lung cancer. POSTOPERATIVE DIAGNOSIS: Small cell lung cancer. PROCEDURE: 1. Left subclavian vein port placement. 2. Fluoroscopic interpretation. SURGEON: Jesus Horvath MD REPORT OF PROCEDURE: The patient's left chest was prepped and draped in sterile fashion. A needle was used to cannulate the left subclavian vein and a guidewire was advanced with ease. Fluoro was used to note that the wire was in good position in the venous system. A skin incision was then made on the left superior lateral chest and a subcutaneous pouch was made over the pectoral fascia. The catheter was tunneled between this pouch and the wire exit site. The port was then sutured into the pectoral fascia with interrupted 3-0 Prolenes times 2. The catheter was cut with a beveled tip at 30 cm. The dilator trocar device was then placed over the wire, and the wire and dilator were removed. The catheter tip was advanced through the trocar and the trocar was then removed. The catheter tip was noted to be resting in good position in the right atrial superior vena caval junction. The catheter aspirated nonpulsatile dark blood and flushed easily with heparinized saline. The subcutaneous tissues were then reapproximated with interrupted 3-0 Vicryl and the skin was closed with running subcutaneous 5-0 Monocryl. The port was then accessed and flushed one last time and a dressing was applied. COMPLICATIONS: None. CONDITION: Stable. ANESTHESIA: General endotracheal. BLOOD LOSS: Minimal. TRANSINT:[id number] Voice Confirmation ID: [id number] DOCUMENT ID: [id number] JESUS HORVATH MD CC: ALEX WILLOUGHBY MD [id number] DICTATION DATE: 07/11/20914 DRIER AND GRINDER TENDER: 07/11/201933 [facility] 07/11/20 [address] [address] [place] [address]
[~2020-07-11 05:24] MED LIST changes: +FLUTICASONE PRO16 GM NASAL; +MUCINEX600 MG PO; +NICODERM CQ1 EAC3 TRANSDERM; +PREDNISONE10 MG PO; +PULMICORT0.5 MG/21 UPD; +SINGULAIR10 MG PO; +TESSALON PERLE100 MG PO
[2020-07-11 06:21] LABS: BASOPHILS 0.2 % (0-2); EOSINOPHILS 1.1 % (0-7); HEMATOCRIT 46.4 % (36.0-48.0); HEMOGLOBIN 15.2 g/dL (12-16); IMMATURE GRANULOCYTES 0.3 % (0-5); LYMPHOCYTES 21.9 % (15-50); MCH 31.9 pg (26.0-34.0); MCHC 32.8 g/dL (31.0-37.0); MCV 97.3 fL (80.0-100.0); MEAN PLATELET VOLUME 9.4 fL (7.4-10.4); MONOCYTES 6.1 % (2-11); NEUTROPHILS 70.4 % (40-80); PLATELET COUNT 138 10x3/uL (130-400); RBC 4.77 10x6/uL (4.00-5.40); WBC 6.4 10x3/uL (4.8-10.8)
[2020-07-11 06:30] LABS: ANION GAP 9.1 mmol/L (8-16); CALCIUM 8.9 mg/dL (8.5-10.1); CARBON DIOXIDE 32.6 mmol/L (21.0-32.0); CREATININE - SERUM 0.9 mg/dL (0.6-1.3); POTASSIUM - SERUM 3.7 mmol/L (3.5-5.1)
[2020-07-11 06:33] LABS: APTT 23.9 SECONDS (22.8-39.4); INR 0.91 (0.85-1.17); PROTIME 12.2 SECONDS (11.6-15.0)
[2020-07-11] MEDS ORDERED: MUCINEX600 MG PO (06:41)
[2020-07-11] MEDS ORDERED: ZYLOPRIM100 MG PO (06:42)
[2020-07-11] MEDS ORDERED: SINGULAIR10 MG PO (06:43)
[2020-07-11] MEDS ORDERED: BUTALB-APAP-CA1 EACH PO (06:44)
[2020-07-11] MEDS ORDERED: TESSALON PERLE100 MG PO (06:45)
[2020-07-11] MEDS ORDERED: ZOFRAN4 MG PO (06:46)
[2020-07-11] MEDS ORDERED: PHENERGAN25 M1 PO (06:47)
[2020-07-11] MEDS ORDERED: HYDROCODON-ACE1 EA10 PO ×2 (06:49→09:12)
[2020-07-11] MEDS ORDERED: KLONOPIN1 MG PO (06:50)
[2020-07-11] MEDS ORDERED: ANORO ELLIPTA1 EACH (06:51)
[2020-07-11] MEDS ORDERED: ANECREAM TOPICAL (06:54)
[2020-07-11] MEDS ORDERED: MIRALAX17 GM PO (06:57)
[2020-07-11 07:01] VITALS: BP 103/66; Ht 162.6 cm; Wt 68.9 kg
--- NOTE | 2020-07-11 08:13 | NUR ---
0810 [facility] 264. REPORT TO Tadeo BERNAL R.N.
== END 2020-07-11 11:02 | disposition home or self-care (01) ==
LOC: D.OPS 05:24
PROVIDERS: Anesthesiology; ATTEND Surgery
DX: C34.90 Malignant neoplasm of unspecified part of unspecified bronchus or lung (principal)

== ENCOUNTER 2020-07-18 12:24 | Inpatient (IN) | payer MEDICAID ==
[2020-07-18] VITALS (11 sets, daily range): BP systolic 98–113; BP diastolic 52–77; BMI 27.5
[~2020-07-18] VITALS: Ht 162.6 cm; Wt 69.6 kg
[~2020-07-18 12:24] MED LIST changes: +ANECREAM TOPICAL; +ANORO ELLIPTA1 EACH; +BUTALB-APAP-CA1 EACH PO; +HYDROCODON-ACE1 EA10 PO; +KLONOPIN1 MG PO; +MIRALAX17 GM PO; +PHENERGAN25 M1 PO; +ZOFRAN4 MG PO; +ZYLOPRIM100 MG PO
[2020-07-18 13:03] LABS: BASOPHILS 0.2 % (0-2); HEMATOCRIT 34.7 % (36.0-48.0); HEMOGLOBIN 11.5 g/dL (12-16); IMMATURE GRANULOCYTES 0.7 % (0-5); LYMPHOCYTES 15.4 % (15-50); MCH 31.8 pg (26.0-34.0); MCHC 33.1 g/dL (31.0-37.0); MCV 95.9 fL (80.0-100.0); MEAN PLATELET VOLUME 9.8 fL (7.4-10.4); MONOCYTES 0.2 % (2-11); NEUTROPHILS 81.5 % (40-80); RBC 3.62 10x6/uL (4.00-5.40); RDW 12.6 % (11.5-14.5); WBC 4.1 10x3/uL (4.8-10.8)
[2020-07-18 13:07] LABS: PLATELET COUNT 67 10x3/uL (130-400)
[2020-07-18 13:15] LABS: CALC OSMOLALITY 285 mosm/kg (275-300); CALCIUM 7.8 mg/dL (8.5-10.1); CARBON DIOXIDE 38.6 mmol/L (21.0-32.0); CHLORIDE - SERUM 100 mmol/L (98-107); CREATININE - SERUM 0.7 mg/dL (0.6-1.3); GLUCOSE 283 mg/dL (74-106); POTASSIUM - SERUM 4.3 mmol/L (3.5-5.1); SODIUM 137 mmol/L (136-145); UREA NITROGEN 17 mg/dL (7-18); eGFR NON AFRICAN AMERICAN > 90 mL/min (90-120)
[2020-07-18 13:16] LABS: APTT 24.6 SECONDS (22.8-39.4); INR 0.96 (0.85-1.17); PROTIME 12.7 SECONDS (11.6-15.0)
[2020-07-18 13:24] LABS: D-DIMER-QUANTITATIVE 3.38 ug/mLFEU (0.20-0.54)
[2020-07-18 13:34] LABS: ALBUMIN 2.8 g/dL (3.4-5.0); ALKALINE PHOSPHATASE 81 U/L (30-120); ALT (SGPT) 45 U/L (10-68); BILIRUBIN - TOTAL 0.32 mg/dL (0.2-1.3); CKMB 0.3 U/L (0.0-3.6); CREATINE KINASE 47 UL (21-215); MAGNESIUM - SERUM 1.5 mg/dL (1.8-2.4); PRO BNP 1573 pg/mL (0-125); PROTEIN - SERUM 5.2 g/dL (6.4-8.2); TROPONIN-I < 0.017 ng/mL (0.000-0.060)
[2020-07-18 14:11] LABS: BILIRUBIN NEGATIVE (NEGATIVE); KETONE NEGATIVE (NEGATIVE); NITRITE NEGATIVE (NEGATIVE); UROBILINOGEN NORMAL (NORMAL)
[2020-07-18 14:12] LABS: WHITE CELLS - URINE 0-5 /hpf (NEGATIVE)
[2020-07-18 14:13] LABS: BACTERIA FEW /hpf (NEGATIVE); EPITHELIAL CELLS 0-5 /hpf (0-5); GRANULAR CAST 0-5 /lpf (NONE SEEN); RED CELLS - URINE NONE SEEN /hpf (0-5)
--- NOTE | 2020-07-18 22:23 | NUR ---
PATIENT ALERT AND ORIENTED. STATED SHE WANTED TO BE A FULL CODE.
[2020-07-19] VITALS (23 sets, daily range): BP systolic 82–115; BP diastolic 53–72; Ht 162.6 cm; Wt 69.6 kg
[2020-07-19 04:36] LABS: BASOPHILS 0.3 % (0-2); EOSINOPHILS 1.4 % (0-7); HEMATOCRIT 36.2 % (36.0-48.0); IMMATURE GRANULOCYTES 0.6 % (0-5); LYMPHOCYTES 22.2 % (15-50); MCH 31.9 pg (26.0-34.0); MCHC 33.1 g/dL (31.0-37.0); MCV 96.3 fL (80.0-100.0); MEAN PLATELET VOLUME 10.4 fL (7.4-10.4); MONOCYTES 0.3 % (2-11); NEUTROPHILS 75.2 % (40-80); PLATELET COUNT 54 10x3/uL (130-400); RBC 3.76 10x6/uL (4.00-5.40); RDW 12.6 % (11.5-14.5); WBC 3.5 10x3/uL (4.8-10.8)
[2020-07-19 04:59] LABS: PLATELET ESTIMATE DECREASED
[2020-07-19 05:33] LABS: ALBUMIN 2.8 g/dL (3.4-5.0); ALKALINE PHOSPHATASE 81 U/L (30-120); ALT (SGPT) 39 U/L (10-68); BILIRUBIN - TOTAL 0.41 mg/dL (0.2-1.3); CALCIUM 8.1 mg/dL (8.5-10.1); CARBON DIOXIDE 39.4 mmol/L (21.0-32.0); CHLORIDE - SERUM 98 mmol/L (98-107); CKMB 0.2 U/L (0.0-3.6); CREATINE KINASE 40 UL (21-215); CREATININE - SERUM 0.7 mg/dL (0.6-1.3); MAGNESIUM - SERUM 1.6 mg/dL (1.8-2.4); POTASSIUM - SERUM 4.3 mmol/L (3.5-5.1); SODIUM 137 mmol/L (136-145); TROPONIN-I < 0.017 ng/mL (0.000-0.060); UREA NITROGEN 14 mg/dL (7-18); eGFR NON AFRICAN AMERICAN > 90 mL/min (90-120)
[2020-07-19 05:49] LABS: CALC OSMOLALITY 280 mosm/kg (275-300); GLUCOSE 210 mg/dL (74-106)
--- NOTE | 2020-07-19 06:24 | NUR ---
FAMILY CALLED. STATED THEY DID NOT WANT HER ON THE VENTILATOR. PATIENT IS ALERT AND ORIENTED.. SHE STATED SHE WANTED ON THE VENTILATOR IF THATS WHAT IT CAME TO. I EDUCATED ON WHAT THE VENTILATOR DOES AND WHEN ITS INDICATED IN USE. PATIENT VERBALLY STATED SHE UNDERSTOOD AND WANTED TO LIVE. I VOICED THIS TO FAMILY AND THEY STATED THAT SHE IS NOT IN HER RIGHT MIND AND THAT THEY WILL BE CALLING ME BACK.
--- NOTE | 2020-07-19 21:00 | NUR ---
DAUGHTER AT BEDSIDE, UPDATE PROVIDED AND QUESTIONS ANSWERED.
[2020-07-20] VITALS (26 sets, daily range): BP systolic 99–131; BP diastolic 51–73
[2020-07-20 04:21] LABS: HEMATOCRIT 28.2 % (36.0-48.0); HEMOGLOBIN 9.4 g/dL (12-16); MCH 31.1 pg (26.0-34.0); MCHC 33.3 g/dL (31.0-37.0); MCV 93.4 fL (80.0-100.0); MEAN PLATELET VOLUME 10.7 fL (7.4-10.4); RBC 3.02 10x6/uL (4.00-5.40); RDW 12.3 % (11.5-14.5); WBC 2.7 10x3/uL (4.8-10.8)
[2020-07-20 04:22] LABS: CALC OSMOLALITY 282 mosm/kg (275-300); CALCIUM 8.2 mg/dL (8.5-10.1); CARBON DIOXIDE 37.6 mmol/L (21.0-32.0); CHLORIDE - SERUM 101 mmol/L (98-107); CREATININE - SERUM 0.6 mg/dL (0.6-1.3); GLUCOSE 238 mg/dL (74-106); MAGNESIUM - SERUM 1.5 mg/dL (1.8-2.4); POTASSIUM - SERUM 3.9 mmol/L (3.5-5.1); SODIUM 137 mmol/L (136-145); UREA NITROGEN 16 mg/dL (7-18); eGFR NON AFRICAN AMERICAN > 90 mL/min (90-120)
[2020-07-20 04:23] LABS: PLATELET COUNT 44 10x3/uL (130-400)
[2020-07-20 04:25] LABS: PHOSPHOROUS 2.7 mg/dL (2.5-4.9)
--- NOTE | 2020-07-20 05:22 | NUR ---
MATTEO PAGED AT THIS TIME REGARDING CRITICAL LAB RESULTS
[2020-07-20 05:23] LABS: EOSINOPHILS 1 % (0-7); LYMPHOCYTES 23 % (15-50); NEUTROPHILS 75 % (40-80); PLATELET ESTIMATE DECREASED
--- NOTE | 2020-07-20 05:25 | NUR ---
REC'D CALLBACK FROM MATTEO, LAB RESULTS PROVIDED, NO NEW ORDERS GIVEN AT THIS TIME.
--- NOTE | 2020-07-20 09:10 | NUR ---
DR FELIPE AT THE PTS BEDSIDE.
--- NOTE | 2020-07-20 09:11 | NUR ---
DR FELIPE GAVE OK TO ACCESS PORT.
--- NOTE | 2020-07-20 10:00 | NUR ---
DR ALEXANDRU ALMONTE TO USE INFUSAPORT.
--- NOTE | 2020-07-20 10:45 | NUR ---
INFUSAPORT ACCESSED. PIV DC'D WITH THE CATHETER TIP INTACT.
--- NOTE | 2020-07-20 20:40 | NUR ---
PT ASKED FOR CLONAZEPAM, SHE TAKES 1MG PO TID PRN AT HOME. SPOKE WITH RANI CHEUNG AND RECEIVED ORDERS FOR ONE TIME DOSE OF 0.5MG.
[2020-07-21] VITALS (19 sets, daily range): BP systolic 103–127; BP diastolic 53–72
[2020-07-21 05:38] LABS: BASOPHILS 0 % (0-2); EOSINOPHILS 0 % (0-7); HEMOGLOBIN 9.7 g/dL (12-16); IMMATURE GRANULOCYTES 2.3 % (0-5); MCH 31.1 pg (26.0-34.0); MCHC 33.4 g/dL (31.0-37.0); MCV 92.9 fL (80.0-100.0); MEAN PLATELET VOLUME 10.6 fL (7.4-10.4); MONOCYTES 1.8 % (2-11); NEUTROPHILS 71.9 % (40-80); RBC 3.12 10x6/uL (4.00-5.40); RDW 12.2 % (11.5-14.5)
[2020-07-21 05:48] LABS: WBC 3.9 10x3/uL (4.8-10.8)
[2020-07-21 05:50] LABS: PLATELET COUNT 35 10x3/uL (130-400)
[2020-07-21 06:03] LABS: ALBUMIN 2.6 g/dL (3.4-5.0); ALKALINE PHOSPHATASE 76 U/L (30-120); ALT (SGPT) 29 U/L (10-68); BILIRUBIN - TOTAL 0.46 mg/dL (0.2-1.3); CALC OSMOLALITY 281 mosm/kg (275-300); CALCIUM 8.4 mg/dL (8.5-10.1); CARBON DIOXIDE 36.1 mmol/L (21.0-32.0); CHLORIDE - SERUM 102 mmol/L (98-107); CREATININE - SERUM 0.5 mg/dL (0.6-1.3); GLUCOSE 209 mg/dL (74-106); MAGNESIUM - SERUM 1.5 mg/dL (1.8-2.4); PHOSPHOROUS 2.9 mg/dL (2.5-4.9); POTASSIUM - SERUM 3.7 mmol/L (3.5-5.1); PROTEIN - SERUM 5.5 g/dL (6.4-8.2); SODIUM 138 mmol/L (136-145); UREA NITROGEN 12 mg/dL (7-18); eGFR NON AFRICAN AMERICAN > 90 mL/min (90-120)
--- NOTE | 2020-07-21 06:05 | NUR ---
PT WITH CRITICAL LABS. DR FELIPE CALL AND GIVEN REPORT. NO ORDERS AT THIS TIME
--- NOTE | 2020-07-21 13:37 | NUR ---
NUTRITION FOLLOW UP: COMMENTS: Met with patient this am. Patient stated her appetite has been good. She stated she has been having some issues with taste changes due to medications. She denied any recent N/V/D/C and denied any new issues with chewing/swallowing. DIET: Regular Diet PO INTAKE: 100% x 1 meal WEIGHT: 155.4 lbs on 07/20 BM: x 2 on 07/20 SIG LABS: Cr-0.5(L). POC Glucose: 316, 261, 264, 311 SIG MEDS: Humulin, Vit C, Lovenox, Mag Ox, NS @ KVO RECOMMENDATIONS: -Recommend change diet from Reg to Diabetic due to high glucose levels -Offer nutritional supplements if po intake becomes < 50% avg for meals RD to continue to follow and monitor patient DHS
--- NOTE | 2020-07-21 14:16 | NUR ---
0730-AWAKE AND ALERT-VAPOTHERM AT 70% AND 40L-PT COMPLIANT 0930-CASE MANAGEMENT AT BEDSIDE TO ADDRESS PT COURT ISSUES AND DOCUMENTATION 1000-DR FELIPE AT BEDSIDE-SPOKE WITH PT REGARDING CURRENT STATUS AND PLAN OF TREATMENT 1330-DR NDIAYE AT BEDSIDE-SPOKE WITH PT REGARDING STATUS AND PLANNED CARE OF TREATMENT-VAPOTHERM TREATMENT DECREASED TO 50%/40L-SEE RT FLOW SHEET 1350-SWISH AND SWALLOW LIDOCAINE/ DONE BY PT
--- NOTE | 2020-07-21 18:11 | NUR ---
3880-DR NDIAYE AT BEDSIDE-VAPOTHERM CHANGES DONE-PT AWAKE AND ALERT-TALKING EASILY
--- NOTE | 2020-07-21 19:30 | NUR ---
REPORT REC'D AND CARE ASSUMED, PT SITTING UP IN BED WATCHING TV, O2 @ 50% AND 40 LITERS VIA VAPOTHERM, LEFT UPPER CHEST INFUSAPORT WITH NS @ 10CC/HR, PT MAEE, PT COMPLAINS OF BACK PAIN, REQUESTING NORCO AT THIS TIME, CM-SR, VS Q4HRS, ROLLINS PATENT DRAINING YELLOW URINE, BED IN LOW POSITION, CALL LIGHT IN REACH.
--- NOTE | 2020-07-21 19:40 | MORECARE ---
CASE MANAGEMENT DISCHARGE SUMMARY PATIENT: JEZ LEMA UNIT: [id number] ADM DATE: 07/18/20 AGE: 60 : 64 SEX: F ROOM/BED: D.[facility] AUTHOR: JONAH GUAN PHYSICIAN: REFERRING PHYSICIAN: LEYDA WORLEY MD DATE OF SERVICE: 07/21/20 Discharge Plan Patient Name: JEZ LEMA [facility] [facility] 1960 Planned Disposition: Home with Home Health Anticipated Discharge Date: Discharge Date: Expected LOS: Initial Reviewer: [email or web address] Initial Review Date: 07/18/2020 Generated: 07/21/20 8:39 pm DCPIA - Discharge Planning Initial Assessment Updated by [email or web address]: Susi Carlin on 07/21/20 7:39 pm * Is the patient Alert and Oriented? Yes * How many steps to enter\exit or inside your home? RAMP * PCP MARTIN * Pharmacy [facility] * Preadmission Environment Home with Family * ADLs Independent * Other Equipment HOME/ PORTABLE 02 - [facility], NEBULIZER * List name and contact numbers for known caregivers / representatives who currently or will assist patient after discharge: FLAKO BERRY - DAUGHTER - [phone] MELONY BARCLAY - [phone] * Verbal permission to speak to the caregivers and representatives has been obtained from the patient. Yes * Community resources currently utilized None * Additional services required to return to the preadmission environment? No * Can the patient safely return to the preadmission environment? Yes * Has this patient been hospitalized within the prior 30 days at any hospital? No Patient Name: JEZ LEMA Page 13500 at 1940 All edits/amendments must be made on the electronic document DICTATION DATE: 07/21/201938 HI LOW TRUCK DRIVER: AMPARO 07/21/201938 RPT#: [id number] DC DATE: STATUS: ADM IN [facility] [address] [place] [address] END OF REPORT
--- NOTE | 2020-07-21 19:52 | MORECARE ---
CASE MANAGEMENT DISCHARGE SUMMARY PATIENT: JEZ LEMA UNIT: [id number] ADM DATE: 07/18/20 AGE: 60 : 64 SEX: F ROOM/BED: D.[facility] AUTHOR: FREIDA,DOC PHYSICIAN: REFERRING PHYSICIAN: LEYDA WORLEY MD DATE OF SERVICE: 07/21/20 Discharge Plan Patient Name: JEZ LEMA Facility: [facility]:[place] : 1960 Planned Disposition: Home with Home Health Anticipated Discharge Date: Discharge Date: Expected LOS: Initial Reviewer: [id number] Initial Review Date: 07/18/2020 Generated: 07/21/20 8:51 pm Comments DCP- Discharge Planning Updated by [email or web address]: Susi Carlin on 07/21/20 6:[address] Patient Name: JEZ LEMA Admission Status: ER Accout number: [id number] Admission Date: 07-18-2020 : 1960 Admission Diagnosis:PNEUMONIA, UNSPECIFIED ORGANISM Attending: LEYDA WORLEY Current LOS: 3 Anticipated DC Date: Planned Disposition: Home with Home Health [place] Insurance: [place] PRIVATE OPTIONS [employer] Discharge Planning Comments: CM met with patient to complete initial dc planning assessment. CM educated patient on the CM role and verbal consent given by patient to complete assessment. Patient lives at home with family. Patient is independent. At discharge patient plans to return home and feels this is a safe discharge. CM discussed availability of home health, rehab services, and medical equipment. Patient states that she has home / portable 02 and nebulizer with [facility] but she is not happy with them and would like to switch to [facility] upon discharge. Patient and son are requesting Home Health upon discharge ESTIVEN signed for [facility], [facility], [facility]. Patient will have family to transport home. Patient denied known discharge needs at this time. CM will continue to follow and will assist as needed with dc plans/needs. Performance Manager: Susi Carlin DCPIA - Discharge Planning Initial Assessment Updated by [email or web address]: Susi Carlin on 07/21/20 7:39 pm * Is the patient Alert and Oriented? Yes * How many steps to enter\exit or inside your home? RAMP * PCP SALAZAR * [facility]acy [facility] * Preadmission Environment Home with Family * ADLs Independent * Other Equipment HOME/ PORTABLE 02 - [facility], NEBULIZER * List name and contact numbers for known caregivers / representatives who currently or will assist patient after discharge: FLAKO BERRY - DAUGHTER - [phone] MELONY Santiago DAUGHTER - [phone] * Verbal permission to speak to the caregivers and representatives has been obtained from the patient. Yes * Community resources currently utilized None * Additional services required to return to the preadmission environment? No * Can the patient safely return to the preadmission environment? Yes * Has this patient been hospitalized within the prior 30 days at any hospital? No Coverage Notice Reviewer: [id number] Jack Carlin Notice Issued Date-Time: 07/21/2020 16:25 Notice Type: Patient Choice Letter Notice Delivered To: Family Member Relationship to Patient: Son Shank Paperer Name: Darrell Delivery Method: HAND - Hand Delivered Tri Days: Prior Verbal Notification: Recipient Understood Notice: Yes Recipient Signature: Yes Med Rec Note Co-signed by Attending: Coverage Notice Comment: wants to switch to [facility] for DME [facility], #2 [facility], #3 [facility] Last DP export: 07/21/20 6:40 p Patient Name: JEZ LEMA Page [id number] at 1951 All edits/amendments must be made on the electronic document DICTATION DATE: 07/21/201951 TRANSIT BUS DRIVER: AMPARO 07/21/201951 RPT#: [id number] DC DATE: STATUS: ADM IN [facility] [address] [place] [address] END OF REPORT
--- NOTE | 2020-07-21 20:07 | NUR ---
NORCO GIVEN FOR COMPLAINT OF BACK PAIN, "6" ON 0-10 PAIN SCALE, PT DENIES FURTHER NEEDS.
--- NOTE | 2020-07-21 22:00 | NUR ---
EVENING MEDS GIVEN ORDERED, PT DENIES FURTHER NEEDS.
--- NOTE | 2020-07-22 03:45 | NUR ---
PT COMPLAINS OF LOWER ABDOMINAL PAIN, WARM PACK PROVIDED, PT DENIES FURTHER NEEDS.
[2020-07-22 04:00] VITALS: BP 111/61
[2020-07-22 06:46] LABS: BASOPHILS 0.3 % (0-2); EOSINOPHILS 0 % (0-7); HEMATOCRIT 27.8 % (36.0-48.0); HEMOGLOBIN 9.3 g/dL (12-16); IMMATURE GRANULOCYTES 2.7 % (0-5); LYMPHOCYTES 27.3 % (15-50); MCHC 33.5 g/dL (31.0-37.0); MCV 92.7 fL (80.0-100.0); MEAN PLATELET VOLUME 10.5 fL (7.4-10.4); MONOCYTES 3.7 % (2-11); RDW 12.2 % (11.5-14.5)
[2020-07-22 07:00] VITALS: BP 101/64
[2020-07-22 08:41] LABS: PLATELET COUNT 28 10x3/uL (130-400)
[2020-07-22 08:56] LABS: PLATELET ESTIMATE DECREASED
[2020-07-22 09:00] VITALS: BP 113/62
[2020-07-22 10:07] LABS: ALBUMIN 2.7 g/dL (3.4-5.0); ALKALINE PHOSPHATASE 91 U/L (30-120); ALT (SGPT) 30 U/L (10-68); BILIRUBIN - TOTAL 0.45 mg/dL (0.2-1.3); CALC OSMOLALITY 277 mosm/kg (275-300); CALCIUM 8.2 mg/dL (8.5-10.1); CARBON DIOXIDE 31.2 mmol/L (21.0-32.0); CHLORIDE - SERUM 100 mmol/L (98-107); CREATININE - SERUM 0.6 mg/dL (0.6-1.3); GLUCOSE 249 mg/dL (74-106); MAGNESIUM - SERUM 1.4 mg/dL (1.8-2.4); PHOSPHOROUS 3.1 mg/dL (2.5-4.9); POTASSIUM - SERUM 3.8 mmol/L (3.5-5.1); PROTEIN - SERUM 5.5 g/dL (6.4-8.2); SODIUM 135 mmol/L (136-145); UREA NITROGEN 12 mg/dL (7-18); VANCOMYCIN - TROUGH 17.7 ug/mL (10.0-20.0); eGFR NON AFRICAN AMERICAN > 90 mL/min (90-120)
--- NOTE | 2020-07-22 18:12 | NUR ---
0930-DR ROBLES AT BEDSIDE -REVIEWED CXR RESULTS WITH PT -PT BECAME ANXIOUS AND WEEPING 0945-UP IN CHAIR-ABLE TO BEAR [id number] HOW CAN MY PNUEMONIA BE WORSE- 1000[facility]ED HEMATOLOGY WITH PT AND CXR RESULTS-PT BECAME ANXIOUS AGAIN-VISITOR AT BEDSIDE-ABLE TO CALM SAME- 1330-ASSISTED PT TO BED-DR NDIAYE IN UNIT INFORMED OF DATA GIVEN TO PT BY DR ROBLES AND MATTEO-DR NDIAYE REVIEWED ALL XRAYS WITH PT AND CLARIFIED LUNG STATUS-VAPOTHERM SET AT 40% AND 35L-PT APPEARS CALMER
--- NOTE | 2020-07-22 19:30 | NUR ---
REPORT REC'D AND CARE ASSUMED, REC'D PT SITTING UP IN BED WATCHING TV, VAPOTHERM @ 40% AND 35LITERS, AWAKE, ALERT, AND ORIENTED X 4, LEFT UPPER CHEST INFUSAPORT WITH NS @ 5CC/HR, PT MOVES ALL EXTS EQUALLY, PT DENIES PAIN AT THIS TIME,PPP, BED IN LOW POSITION, CALL LIGHT IN REACH.
[2020-07-22 19:44] VITALS: BP 118/66
--- NOTE | 2020-07-22 20:45 | NUR ---
EVENING MEDS GIVEN, FSBS 210, 8 UNITS REGULAR GIVEN, PT REQUESTING SNACK, WAFERS AND PEANUT BUTTER PROVIDED, DENIES FURTHER NEEDS.
[2020-07-22 23:24] VITALS: BP 99/61
--- NOTE | 2020-07-23 03:50 | NUR ---
Report called to ANNA Navarro on Med Surg, PT TRANSFERRED VIA WHEELCHAIR TO ROOM 2217 WITHOUT DIFFICULTY
[2020-07-23 04:30] VITALS: BP 130/70
--- NOTE | 2020-07-23 04:39 | NUR ---
PT ARRIVED ON UNIT VIA WHEELCHAIR, ESCORTED BY CVICU NURSE. POSITIONED IN BED FOR COMFORT. ORIENTED TO ROOM AND CALL LIGHT. TELEMETRY PLACED PER ORDER. RT NOTIFIED OF PATIENT'S ARRIVAL TO PLACE ON VAPOTHERM.
[2020-07-23 05:42] LABS: BASOPHILS 0 % (0-2); EOSINOPHILS 0 % (0-7); HEMATOCRIT 31.6 % (36.0-48.0); HEMOGLOBIN 10.6 g/dL (12-16); IMMATURE GRANULOCYTES 2.2 % (0-5); MCH 31.1 pg (26.0-34.0); MCHC 33.5 g/dL (31.0-37.0); MCV 92.7 fL (80.0-100.0); MEAN PLATELET VOLUME 11.1 fL (7.4-10.4); MONOCYTES 4.8 % (2-11); RBC 3.41 10x6/uL (4.00-5.40); RDW 12.3 % (11.5-14.5); WBC 3.1 10x3/uL (4.8-10.8)
[2020-07-23 05:47] LABS: PLATELET COUNT 33 10x3/uL (130-400)
[2020-07-23 06:06] LABS: ALBUMIN 2.9 g/dL (3.4-5.0); ALKALINE PHOSPHATASE 123 U/L (30-120); ALT (SGPT) 30 U/L (10-68); BILIRUBIN - TOTAL 0.62 mg/dL (0.2-1.3); CALC OSMOLALITY 285 mosm/kg (275-300); CALCIUM 8.7 mg/dL (8.5-10.1); CARBON DIOXIDE 33.1 mmol/L (21.0-32.0); CHLORIDE - SERUM 99 mmol/L (98-107); CREATININE - SERUM 0.7 mg/dL (0.6-1.3); GLUCOSE 287 mg/dL (74-106); MAGNESIUM - SERUM 1.4 mg/dL (1.8-2.4); PHOSPHOROUS 2.9 mg/dL (2.5-4.9); POTASSIUM - SERUM 3.3 mmol/L (3.5-5.1); SODIUM 138 mmol/L (136-145); UREA NITROGEN 12 mg/dL (7-18); eGFR NON AFRICAN AMERICAN > 90 mL/min (90-120)
--- NOTE | 2020-07-23 08:20 | NUR ---
ASSESSMENT PER FLOW SHEET. PATIENT IS WITHOUT DISTRESS.CALL LIGHT IN REACH. AM MEDS
[2020-07-23 09:49] VITALS: BP 145/64
[2020-07-23 12:15] VITALS: BP 112/66
--- NOTE | 2020-07-23 12:29 | NUR ---
PATIENT IS WITHOUT DISTRESS. HAS BEEN UP IN CHAIR. MONITOR FOR NEEDS
--- NOTE | 2020-07-23 13:00 | NUR ---
BATH AND BED CHANGE PER NADJA
[2020-07-23 17:21] VITALS: BP 127/78
--- NOTE | 2020-07-23 19:00 | NUR ---
BEDSIDE REPORT RECEIVED AND CARE OF PT ASSUMED. PT SITTING UP IN BED WATCHING TV. LEFT IP ACCESSED AND PATENT WITH NS INFUSING AT KVO. VAPOTHERM IN USE AT 40L / 25% AT THIS ASSESSMENT. WILL MONITOR FOR NEEDS.
[2020-07-23 20:00] VITALS: BP 114/63
--- NOTE | 2020-07-23 22:00 | NUR ---
HS MEDICATIONS GIVEN. FSBS 204 THIS CHECK REQUIRING COVERAGE WITH 8 UNITS OF INSULIN PER SLIDING SCALE.
[2020-07-24 00:05] VITALS: BP 109/60
[2020-07-24 04:30] VITALS: BP 158/65
[2020-07-24 05:32] LABS: HEMATOCRIT 28.3 % (36.0-48.0); HEMOGLOBIN 9.5 g/dL (12-16); MCH 31.3 pg (26.0-34.0); MCHC 33.6 g/dL (31.0-37.0); MCV 93.1 fL (80.0-100.0); MEAN PLATELET VOLUME 11.2 fL (7.4-10.4); PLATELET COUNT 37 10x3/uL (130-400); RBC 3.04 10x6/uL (4.00-5.40); RDW 12.4 % (11.5-14.5); WBC 2.2 10x3/uL (4.8-10.8)
[2020-07-24 05:47] LABS: ALBUMIN 2.8 g/dL (3.4-5.0); ALKALINE PHOSPHATASE 136 U/L (30-120); ALT (SGPT) 31 U/L (10-68); BILIRUBIN - TOTAL 0.51 mg/dL (0.2-1.3); CALC OSMOLALITY 280 mosm/kg (275-300); CALCIUM 8.4 mg/dL (8.5-10.1); CARBON DIOXIDE 28.8 mmol/L (21.0-32.0); CHLORIDE - SERUM 102 mmol/L (98-107); CREATININE - SERUM 0.6 mg/dL (0.6-1.3); GLUCOSE 251 mg/dL (74-106); MAGNESIUM - SERUM 1.4 mg/dL (1.8-2.4); PHOSPHOROUS 3.2 mg/dL (2.5-4.9); PROTEIN - SERUM 5.6 g/dL (6.4-8.2); SODIUM 136 mmol/L (136-145); UREA NITROGEN 14 mg/dL (7-18); eGFR NON AFRICAN AMERICAN > 90 mL/min (90-120)
[2020-07-24 06:00] LABS: BASOPHILS 1 % (0-2); LYMPHOCYTES 34 % (15-50); NEUTROPHILS 60 % (40-80)
[2020-07-24 06:01] LABS: PLATELET ESTIMATE DECREASED
[2020-07-24 08:44] VITALS: BP 113/64
[2020-07-24 13:10] LABS: AEROBE ID Final report (())
[2020-07-24 13:30] VITALS: BP 122/65
[2020-07-24 17:37] VITALS: BP 116/63
--- NOTE | 2020-07-24 19:00 | NUR ---
BEDSIDE REPORT RECEIVED AND CARE OF PT ASSUMED. PT LYING IN HIGH SCOTT'S POSITION TALKING ON THE PHONE. LEFT INFUSAPORT ACCESSED WITH NS INFUSING AT 30 ML/HR. TELEMETRY IN PLACE AND READING SR AT THIS ASSESSMENT. WILL MONITOR FOR NEEDS.
[2020-07-24 20:00] VITALS: BP 95/53
--- NOTE | 2020-07-24 21:06 | NUR ---
HS MEDICATIONS GIVEN. FSBS 352 THIS CHECK REQUIRNG COVERAGE WITH 16 UNITS OF INSULIN PER SLIDING SCALE.
[2020-07-25] VITALS: BP 98/49
[2020-07-25 04:00] VITALS: BP 118/63
--- NOTE | 2020-07-25 06:30 | NUR ---
PT UP TO CHAIR WITH STAND BY ASSIST. CALL LIGHT WITHIN REACH.
[2020-07-25 07:07] LABS: ALBUMIN 3.2 g/dL (3.4-5.0); ALKALINE PHOSPHATASE 183 U/L (30-120); ALT (SGPT) 31 U/L (10-68); BASOPHILS 0 % (0-2); BILIRUBIN - TOTAL 0.53 mg/dL (0.2-1.3); CALC OSMOLALITY 281 mosm/kg (275-300); CALCIUM 8.6 mg/dL (8.5-10.1); CARBON DIOXIDE 30.7 mmol/L (21.0-32.0); CHLORIDE - SERUM 100 mmol/L (98-107); CREATININE - SERUM 0.7 mg/dL (0.6-1.3); EOSINOPHILS 0.3 % (0-7); GLUCOSE 296 mg/dL (74-106); HEMATOCRIT 32.2 % (36.0-48.0); HEMOGLOBIN 10.7 g/dL (12-16); IMMATURE GRANULOCYTES 2.8 % (0-5); LYMPHOCYTES 38.2 % (15-50); MAGNESIUM - SERUM 1.7 mg/dL (1.8-2.4); MCHC 33.2 g/dL (31.0-37.0); MCV 93.3 fL (80.0-100.0); MEAN PLATELET VOLUME 10.7 fL (7.4-10.4); MONOCYTES 12.3 % (2-11); NEUTROPHILS 46.4 % (40-80); POTASSIUM - SERUM 4.1 mmol/L (3.5-5.1); PROTEIN - SERUM 6.2 g/dL (6.4-8.2); RBC 3.45 10x6/uL (4.00-5.40); RDW 12.5 % (11.5-14.5); SODIUM 135 mmol/L (136-145); UREA NITROGEN 16 mg/dL (7-18); eGFR NON AFRICAN AMERICAN > 90 mL/min (90-120)
[2020-07-25 07:08] LABS: PLATELET COUNT 51 10x3/uL (130-400); WBC 3.2 10x3/uL (4.8-10.8)
[2020-07-25 10:04] VITALS: BP 100/63
[2020-07-25 13:46] VITALS: BP 103/52
--- NOTE | 2020-07-25 14:55 | NUR ---
Nutrition follow-up: Pt in neutropenic precautions; neutropenic diet PO intake 50-100% of meals labs reviewed; glucose elevated 2/2 high dose solumedrol Wt: 154# +BM RDN following.
[2020-07-25 16:47] VITALS: BP 129/72
[2020-07-25 20:00] VITALS: BP 105/52
--- NOTE | 2020-07-25 21:00 | NUR ---
PT SITTING UP IN BEDSIDE CHAIR TALKING ON PHONE, WITHOUT DISTRESS. 6L/HFNC. LEFT CHEST PORT INFUSING NS @ KVO. ROLLINS IN PLACE. FSBS 311, COVERAGE PER SS, SEE MAR. PROVIDED ICE WATER. DENIES PAIN OR NEEDS. CL IN REACH, WILL CTM
[2020-07-26] VITALS: BP 130/74
--- NOTE | 2020-07-26 03:30 | NUR ---
PT LYING IN BED SLEEPING WITHOUT DISTRESS, WILL CTM
[2020-07-26 04:00] VITALS: BP 106/62
[2020-07-26 06:59] LABS: BASOPHILS 0 % (0-2); EOSINOPHILS 0.2 % (0-7); HEMOGLOBIN 10.3 g/dL (12-16); IMMATURE GRANULOCYTES 0.5 % (0-5); LYMPHOCYTES 30.1 % (15-50); MCH 30.9 pg (26.0-34.0); MCHC 33.2 g/dL (31.0-37.0); MCV 93.1 fL (80.0-100.0); MEAN PLATELET VOLUME 10.8 fL (7.4-10.4); NEUTROPHILS 63.2 % (40-80); PLATELET COUNT 58 10x3/uL (130-400); RBC 3.33 10x6/uL (4.00-5.40); RDW 12.9 % (11.5-14.5)
[2020-07-26 07:13] LABS: WBC 6.1 10x3/uL (4.8-10.8)
[2020-07-26 08:21] LABS: PLATELET ESTIMATE DECREASED
[2020-07-26 08:23] LABS: ALBUMIN 3.1 g/dL (3.4-5.0); ALKALINE PHOSPHATASE 204 U/L (30-120); ALT (SGPT) 27 U/L (10-68); BILIRUBIN - TOTAL 0.52 mg/dL (0.2-1.3); CALC OSMOLALITY 279 mosm/kg (275-300); CALCIUM 8.3 mg/dL (8.5-10.1); CARBON DIOXIDE 29.1 mmol/L (21.0-32.0); CHLORIDE - SERUM 102 mmol/L (98-107); CREATININE - SERUM 0.6 mg/dL (0.6-1.3); GLUCOSE 215 mg/dL (74-106); MAGNESIUM - SERUM 1.6 mg/dL (1.8-2.4); POTASSIUM - SERUM 4.1 mmol/L (3.5-5.1); PROTEIN - SERUM 5.7 g/dL (6.4-8.2); SODIUM 136 mmol/L (136-145); UREA NITROGEN 18 mg/dL (7-18); eGFR NON AFRICAN AMERICAN > 90 mL/min (90-120)
[2020-07-26 13:46] VITALS: BP 103/55
--- NOTE | 2020-07-26 13:58 | MORECARE ---
CASE MANAGEMENT DISCHARGE SUMMARY PATIENT: JEZ LEMA UNIT: [id number] ADM DATE: 07/18/20 AGE: 60 : 64 SEX: F ROOM/BED: D.2217 AUTHOR: FREIDA,DOC PHYSICIAN: REFERRING PHYSICIAN: LEYDA WORLEY MD DATE OF SERVICE: 07/26/20 Discharge Plan Patient Name: JEZ LEMA Facility: [facility]:[place] : 1960 Planned Disposition: Home with Home Health Anticipated Discharge Date: Discharge Date: Expected LOS: Initial Reviewer: [email or web address] Initial Review Date: 07/18/2020 Generated: 07/26/20 2:58 pm Comments DCP- Discharge Planning Updated by [email or web address]: Susi Carlin on 07/21/20 6:[address] Patient Name: JEZ LEMA Admission Status: ER Accout number: [id number] Admission Date: 07-18-2020 : 1960 Admission Diagnosis:PNEUMONIA, UNSPECIFIED ORGANISM Attending: LEYDA WORLEY Current LOS: 3 Anticipated DC Date: Planned Disposition: Home with Home Health Primary Insurance: [place] PRIVATE [employer]IONS [employer] Discharge Planning Comments: CM met with patient to complete initial dc planning assessment. CM educated patient on the CM role and verbal consent given by patient to complete assessment. Patient lives at home with family. Patient is independent. At discharge patient plans to return home and feels this is a safe discharge. CM discussed availability of home health, rehab services, and medical equipment. Patient states that she has home / portable 02 and nebulizer with [facility] but she is not happy with them and would like to switch to [facility] upon discharge. Patient and son are requesting Home Health upon discharge ESTIVEN signed for [facility], [facility], [facility]. Patient will have family to transport home. Patient denied known discharge needs at this time. CM will continue to follow and will assist as needed with dc plans/needs. District Director: Susi Carlin DCPIA - Discharge Planning Initial Assessment Updated by [email or web address]: Susi Carlin on 07/21/20 7:39 pm * Is the patient Alert and Oriented? Yes * How many steps to enter\exit or inside your home? RAMP * PCP SALAZAR * Pharmacy [facility] * Preadmission Environment Home with Family * ADLs Independent * Other Equipment HOME/ PORTABLE 02 - [facility], NEBULIZER * List name and contact numbers for known caregivers / representatives who currently or will assist patient after discharge: FLAKO BERRY - DAUGHTER - [phone] MELONY Santiago DAUGHTER - [phone] * Verbal permission to speak to the caregivers and representatives has been obtained from the patient. Yes * Community resources currently utilized None * Additional services required to return to the preadmission environment? No * Can the patient safely return to the preadmission environment? Yes * Has this patient been hospitalized within the prior 30 days at any hospital? No External Providers External Provider: [facility] Next Contact Date: Service Request Date: Service Type: Resolution: Reviewer: Comments: Coverage Notice Reviewer: [id number] - Susi Carlin Notice Issued Date-Time: 07/21/2020 16:25 Notice Type: Patient Choice Letter Notice Delivered To: Family Member Relationship to Patient: Son Roofer Metal Name: Darrell Delivery Method: HAND - Hand Delivered Tri Days: Prior Verbal Notification: Recipient Understood Notice: Yes Recipient Signature: Yes Med Rec Note Co-signed by Attending: Coverage Notice Comment: wants to switch to [facility] for DME [facility], [facility]2 [facility], [facility]3 [facility] Last DP export: 07/21/20 6:52 p Patient Name: JEZ LEMA Page [phone] at 1358 All edits/amendments must be made on the electronic document DICTATION DATE: 07/26/20 1358 LIME SLAKER: AMPARO 07/26/20 1358 RPT#: [id number] DC DATE: STATUS: ADM IN [facility] [address] [place] [address] END OF REPORT
--- NOTE | 2020-07-26 14:18 | MORECARE ---
CASE MANAGEMENT DISCHARGE SUMMARY PATIENT: JEZ LEMA UNIT: [id number] ADM DATE: 07/18/20 AGE: 60 : 64 SEX: F ROOM/BED: D.2217 AUTHOR: FREIDA,DOC PHYSICIAN: REFERRING PHYSICIAN: LEYDA WORLEY MD DATE OF SERVICE: 07/26/20 Discharge Plan Patient Name: JEZ LEMA Facility: [facility]:[place] : 1960 Planned Disposition: Home with Home Health Anticipated Discharge Date: Discharge Date: Expected LOS: Initial Reviewer: [email or web address] Initial Review Date: 07/18/2020 Generated: 07/26/20 3:18 pm Comments DCP- Discharge Planning Updated by [id number]: Shandra Aparicio on 07/26/20 1:[address] PATIENT DID NOT WANT HOME HEALTH DCP- Discharge Planning Updated by [email or web address]: Shandra Aparicio on 07/26/20 1:[address] PATIENT IS DISCHARGING HOME TODAY, SHE WOULD LIKE [facility] PATIENT FOR HER DME. HER SON IN LAW SIGNED A RIGHT OF CHOICE , THE FAMILY HAS ALREADY BEEN IN CONTACT WITH DANN WITH [facility] PATIENT. I CALLED DANN AND FAXED THE CLINICAL OVER. THE PATIENT WAS 79% ON ROOM AIR RESTING. SHE WILL GET PORTABLE & HOME O2 ALONG WITH [facility]. DANN STATED THAT HE WILL GET WITH [facility] TO TRANSFER SERVICES. THE PATIENT WILL BE STAYING WITH HER DAUGHTER AT [address] [place] [address] IN [place] DAUGHTER IS AT BEDSIDE DCP- Discharge Planning Updated by [email or web address]: Susi Carlin on 07/21/20 6:[address] Patient Name: JEZ LEMA Admission Status: ER Accout number: [id number] Admission Date: 07-18-2020 : 1960 Admission Diagnosis:PNEUMONIA, UNSPECIFIED ORGANISM Attending: LEYDA WORLEY Current LOS: 3 Anticipated DC Date: Planned Disposition: Home with Home Health Primary Insurance: [place] PRIVATE OPTIONS [facility] Discharge Planning Comments: CM met with patient to complete initial dc planning assessment. CM educated patient on the CM role and verbal consent given by patient to complete assessment. Patient lives at home with family. Patient is independent. At discharge patient plans to return home and feels this is a safe discharge. CM discussed availability of home health, rehab services, and medical equipment. Patient states that she has home / portable 02 and nebulizer with [facility] but she is not happy with them and would like to switch to [facility] upon discharge. Patient and son are requesting Home Health upon discharge ESTIVEN signed for [facility], [facility], [facility]. Patient will have family to transport home. Patient denied known discharge needs at this time. CM will continue to follow and will assist as needed with dc plans/needs. Neuro Urologist: Susi Carlin DCPIA - Discharge Planning Initial Assessment Updated by [email or web address]: Susi Carlin on 07/21/20 7:39 pm * Is the patient Alert and Oriented? Yes * How many steps to enter\exit or inside your home? RAMP * PCP SALAZAR * Pharmacy [facility] * Preadmission Environment Home with Family * ADLs Independent * Other Equipment HOME/ PORTABLE 02 - [facility], NEBULIZER * List name and contact numbers for known caregivers / representatives who currently or will assist patient after discharge: FLAKO BERRY DAUGHTER - [phone] MELONY BARCLAY - [phone] * Verbal permission to speak to the caregivers and representatives has been obtained from the patient. Yes * Community resources currently utilized None * Additional services required to return to the preadmission environment? No * Can the patient safely return to the preadmission environment? Yes * Has this patient been hospitalized within the prior 30 days at any hospital? No Coverage Notice Reviewer: [id number] - Susi Carlin Notice Issued Date-Time: 07/21/2020 16:25 Notice Type: Patient Choice Letter Notice Delivered To: Family Member Relationship to Patient: Son Insulation Engineman Name: Darrell Delivery Method: HAND - Hand Delivered Tri Days: Prior Verbal Notification: Recipient Understood Notice: Yes Recipient Signature: Yes Med Rec Note Co-signed by Attending: Coverage Notice Comment: wants to switch to [facility] for DME [facility], [facility]2 [facility], #3 [facility] Last DP export: 07/26/20 12:58 p Patient Name: JEZ LEMA Page 16192 at 1418 All edits/amendments must be made on the electronic document DICTATION DATE: 07/26/201417 LEAD BURNER: AMPARO 07/26/201417 RPT#: [id number] DC DATE: STATUS: ADM IN [facility] [address] [place] [address] END OF REPORT
--- NOTE | 2020-07-26 14:25 | NUR ---
PATIENT PORT FLUSHED WITH SALINE AND THEN HEPARIN FLUSH. REMOVED AT THIS TIME. DRESSING PLACED OVER SITE. PATIENT WAITING TO BE DISCHARGED HOME.
[2020-07-26] MEDS ORDERED: LEVOFLOXACIN500 MG PO (14:55)
[2020-07-26] MEDS ORDERED: PREDNISONE10 MG PO (14:57)
--- NOTE | 2020-07-26 16:15 | NUR ---
PATIENT RECIEVED DC INSTRUCTIONS. VERBALIZED UNDERSTANDING. NO QUESTIONS AT THIS TIME. EXPLAINED TO PATIENT THAT NEEDS TO CONTENT WRITER MEDS FROM PHARMACY AND TO WEAR HOME O2. VERBALIZED UNDERSTANDING. DAUGHTER AT BEDSIDE. CALL LIGHT WITHIN REACH.
[2020-07-27 16:09] LABS: AEROBE ID Final report (()); RESULT 1 Moraxella species (())
--- NOTE | 2020-07-27 16:30 | MORECARE ---
CASE MANAGEMENT DISCHARGE SUMMARY PATIENT: JEZ LEMA UNIT: [id number] ADM DATE: 07/18/20 AGE: 60 : 64 SEX: F ROOM/BED: D.2217 AUTHOR: FREIDADOC PHYSICIAN: REFERRING PHYSICIAN: LEYDA WORLEY MD DATE OF SERVICE: 07/27/20 Discharge Plan Patient Name: JEZ LEMA Facility: [facility]:[place] : 1960 Planned Disposition: Home with Home Health Anticipated Discharge Date: Discharge Date: 07/26/2020 Expected LOS: Initial Reviewer: [email or web address] Initial Review Date: 07/18/2020 Generated: 07/27/20 5:29 pm Comments DCP- Discharge Planning Updated by [email or web address]: Shandra Aparicio on 07/26/20 1:[address] PATIENT DID NOT WANT HOME HEALTH DCP- Discharge Planning Updated by [email or web address]: Shandra Aparicio on 07/26/20 1:[address] PATIENT IS DISCHARGING HOME TODAY, SHE WOULD LIKE [facility] PATIENT FOR HER DME. HER SON IN LAW SIGNED A RIGHT OF CHOICE , THE FAMILY HAS ALREADY BEEN IN CONTACT WITH DANN WITH [facility] PATIENT. I CALLED DANN AND FAXED THE CLINICAL OVER. THE PATIENT WAS 79% ON ROOM AIR RESTING. SHE WILL GET PORTABLE & HOME O2 ALONG WITH [facility]. DANN STATED THAT HE WILL GET WITH [facility] TO TRANSFER SERVICES. THE PATIENT WILL BE STAYING WITH HER DAUGHTER AT [address] [place] [address] [place] DAUGHTER IS AT BEDSIDE DCP- Discharge Planning Updated by [email or web address]: Susi Carlin on 07/21/20 6:[address] Patient Name: JEZ LEMA Admission Status: ER Accout number: [id number] Admission Date: 07-18-2020 : 1960 Admission Diagnosis:PNEUMONIA, UNSPECIFIED ORGANISM Attending: LEYDA WORLEY Current LOS: 3 Anticipated DC Date: Planned Disposition: Home with Home Health Primary Insurance: [place] PRIVATE OPTIONS [employer] Discharge Planning Comments: CM met with patient to complete initial dc planning assessment. CM educated patient on the CM role and verbal consent given by patient to complete assessment. Patient lives at home with family. Patient is independent. At discharge patient plans to return home and feels this is a safe discharge. CM discussed availability of home health, rehab services, and medical equipment. Patient states that she has home / portable 02 and nebulizer with [facility] but she is not happy with them and would like to switch to [facility] upon discharge. Patient and son are requesting Home Health upon discharge ESTIVEN signed for [facility], [facility], [facility]. Patient will have family to transport home. Patient denied known discharge needs at this time. CM will continue to follow and will assist as needed with dc plans/needs. Brand Specialist: Susi Carlin DCPIA - Discharge Planning Initial Assessment Updated by [id number]: Susi Carlin on 07/21/20 7:39 pm * Is the patient Alert and Oriented? Yes * How many steps to enter\exit or inside your home? RAMP * PCP MARTIN * [facility]acy [facility] * Preadmission Environment Home with Family * ADLs Independent * Other Equipment HOME/ PORTABLE 02 - [facility], NEBULIZER * List name and contact numbers for known caregivers / representatives who currently or will assist patient after discharge: FLAKO BERRY DAUGHTER - [phone] MELONY DENY [phone] * Verbal permission to speak to the caregivers and representatives has been obtained from the patient. Yes * Community resources currently utilized None * Additional services required to return to the preadmission environment? No * Can the patient safely return to the preadmission environment? Yes * Has this patient been hospitalized within the prior 30 days at any hospital? No Coverage Notice Reviewer: [id number] - Susi Carlin Notice Issued Date-Time: 07/21/2020 16:25 Notice Type: Patient Choice Letter Notice Delivered To: Family Member Relationship to Patient: Son Unpaid Intern Name: Darrell Delivery Method: HAND - Hand Delivered Tri Days: Prior Verbal Notification: Recipient Understood Notice: Yes Recipient Signature: Yes Med Rec Note Co-signed by Attending: Coverage Notice Comment: wants to switch to [facility] for DME #1 [place] [facility] [place] [facility], #2 [facility], #3 [facility] Last DP export: 07/26/20 1:18 p Patient Name: JEZ LEMA Page [id number] at 1630 All edits/amendments must be made on the electronic document DICTATION DATE: 07/27/201628 CROZE CUTTER HELPER: AMPARO 07/27/20 1629 RPT#: [id number] DC DATE:07/26/20 STATUS: DIS IN [facility] [address] [place] [address] END OF REPORT
== END 2020-07-26 16:20 | disposition home or self-care (01) | DRG 193 ==
LOC: D.ER 12:24 → D.CVICU 15:41 → D.ICU 15:41 → D.CVICU 07-19 16:44 → D.MS 07-23 04:36 → D.SDCHOLD 07-26 14:19 → D.MS 07-26 16:20
PROVIDERS: Family Medicine; Family Medicine Adult Medicine; ADMIT Family Medicine; ATTEND Family Medicine
DX: J18.9 Pneumonia, unspecified organism (principal); J96.22 Acute and chronic respiratory failure with hypercapnia; J96.21 Acute and chronic respiratory failure with hypoxia; I50.31 Acute diastolic (congestive) heart failure; C7A.8 Other malignant neuroendocrine tumors; C34.90 Malignant neoplasm of unspecified part of unspecified bronchus or lung; F17.203 Nicotine dependence unspecified, with withdrawal; M19.90 Unspecified osteoarthritis, unspecified site; F41.9 Anxiety disorder, unspecified; D64.9 Anemia, unspecified; E83.42 Hypomagnesemia; E11.9 Type 2 diabetes mellitus without complications; J30.9 Allergic rhinitis, unspecified; D47.3 Essential (hemorrhagic) thrombocythemia; J44.9 Chronic obstructive pulmonary disease, unspecified

== ENCOUNTER 2021-03-12 10:44 | Outpatient (CLI) | payer BC ==
[~2021-03-12] VITALS: Ht 162.6 cm; Wt 63.6 kg
[~2021-03-12 10:44] MED LIST changes: +LEVOFLOXACIN500 MG PO
[2021-03-12 12:30] VITALS: BP 91/52; Ht 162.6 cm; Wt 63.6 kg
--- NOTE | 2021-03-12 17:24 | NUR ---
DC INSTRUCTIONS GIVEN TO PT. STATES UNDERSTANDING. WILL CONTINUE TO MONITOR.
--- NOTE | 2021-03-12 17:48 | NUR ---
DC'D IV CATH FULLY INTACT. WILL DC PT SHORTLY.
== END 2021-03-12 18:00 | disposition home or self-care (01) ==
LOC: D.OPS 10:44
PROVIDERS: ATTEND Internal Medicine Hematology & Oncology
DX: D69.6 Thrombocytopenia, unspecified (principal); C34.90 Malignant neoplasm of unspecified part of unspecified bronchus or lung

== ENCOUNTER → 2021-04-09 13:26 | Outpatient (CLI) | payer BC ==
[2021-03-12 12:30] VITALS: BMI 24.0
== END | disposition home or self-care (01) ==
LOC: D.CT 13:26
PROVIDERS: ATTEND Internal Medicine Hematology & Oncology
DX: C41.9 Malignant neoplasm of bone and articular cartilage, unspecified (principal); Z85.118 Personal history of other malignant neoplasm of bronchus and lung; E11.9 Type 2 diabetes mellitus without complications; J01.80 Other acute sinusitis; R30.0 Dysuria; E87.6 Hypokalemia; C41.0 Malignant neoplasm of bones of skull and face; C41.2 Malignant neoplasm of vertebral column; D70.9 Neutropenia, unspecified; D64.81 Anemia due to antineoplastic chemotherapy; D69.6 Thrombocytopenia, unspecified